=== PATIENT | male | born 1965 | race Caucasian/White ===

== ENCOUNTER → 2017-04-30 | Outpatient (CLI) | payer BC ==
[~2017-04-30] MED LIST: ASPI81TA28 PO; ATOR-24 PO; CLOP1TAB15 PO; DSY100 PO; LISI-725 PO; METO25TA3 PO; [UNRECOGNIZED DRUG - CODE] PO
--- NOTE | 2017-04-30 09:46 | DIAGNOSTIC IMAGING REPORT ---
C-SPINE ROUTINE 4 OR 5 VIEWS HISTORY: 51 years-old Male NECK PAIN chronic neck pain for several years, worse on the right. No reported trauma. COMPARISON: None available. TECHNIQUE: 5 views of the cervical spine. FINDINGS: The C7-T1 interspace is partially discovered on lateral view secondary to overlying soft tissue. Mild facet arthropathy is seen at C6-C7 and C7-T1. Mild multilevel uncovertebral spurring is noted without significant intervertebral disc space narrowing. Alignment is satisfactory. There is no fracture identified. The bony neuroforamina appear generally patent. The imaged lung apices appear clear. No prevertebral soft tissue swelling. IMPRESSION: 1. No acute fracture or subluxation. 2. Mild facet arthropathy at C6-C7 and C7-T1 with multilevel mild uncovertebral spurring. No significant intervertebral disc space narrowing or bony neuroforaminal stenosis identified. The above report was generated using voice recognition software. It may contain grammatical, syntax or spelling errors. Electronically signed by: Everett Mack M.D. 04/30/2017 9:45 AM Dictated Date/Time: 04/30/2017 9:42 AM
== END | disposition home or self-care (01) ==
LOC: C.RAD1850 09:07
PROVIDERS: ATTEND Family Medicine
DX: M54.2 Cervicalgia (principal)

== ENCOUNTER 2017-05-21 21:26 | Emergency (ER) | payer BC ==
[~2017-05-21] VITALS: Ht 172.7 cm; Wt 103.4 kg
[2017-05-21 21:33] VITALS: TEMP 36.9; Ht 172.7 cm; Wt 103.4 kg
[2017-05-21] MEDS ORDERED: OXYMETAZOLINE HCL 0.05% NA SPR 15 ML BTL ONE (21:44)
--- NOTE | 2017-05-21 22:17 | EMERGENCY ROOM VISIT NOTE ---
History Report prepared by [place]: Garland Padgett Under the Supervision of: Dr. Jennifer Kumar D.O. First contact with patient: 21:47 Chief Complaint: NOSE BLEED (MINOR) Stated Complaint: NOSE BLEED History of Present Illness The patient is a 51 year old male who presents to the Emergency Room with complaints of a constant nose bleed beginning an hour ago. The patient states that he has had about 5 intermittent nose bleeds since Saturday and states that this one has been the worst. He notes that the nose bleeds were previously in one nostril, but now seem to be in both. He notes also feeling symptoms of lightheadedness and nausea from the blood running down his throat. He denies any chest pain, SOB, cough, or cold. The patient states that he has never needed any previous packing for nose bleeds. He notes that he is currently takes aspirin and Plavix because he has two stents placed. Source of History: patient Onset: an hour ago Position: nose Timing: constant Associated Symptoms: + nausea, No cough, No chest pain, No SOB Note: he notes feeling light headed, he denies any cough or cold Review of Systems See HPI for pertinent positives & negatives. A total of 10 systems reviewed and were otherwise negative. Past Medical & Surgical Medical Problems: (1) Coronary artery disease Surgical Problems: (1) H/O percutaneous transluminal coronary angioplasty (2) Stented coronary artery Family History Diabetes mellitus FH: cancer FH: heart disease Hypertension Social History Smoking Status: Never Smoker Drug Use: none Marital Status: Housing Status: lives with family Occupation Status: employed Current/Historical Medications Scheduled Aspirin (Aspirin Ec), 81 MG PO QAM Atorvastatin (Lipitor), 40 MG PO QPM Bupropion (Wellbutrin), 100 MG PO LUNCH Cephalexin (Keflex), 1 CAP PO TID Clopidogrel (Plavix), 75 MG PO QAM Lisinopril (Zestril), 20 MG PO QAM Metoprolol Succinate (Toprol Xl), 0.5 TAB PO QAM Sertraline (Zoloft), 250 MG PO LUNCH Scheduled PRN Hydrocodone-Acetaminophen (Hydrocodone/Acetaminophen), 1 TAB PO Q4H PRN for Pain Allergies Coded Allergies: No Known Allergies (Unverified , 05/22/17) Physical Exam Vital Signs Date Time Temp Pulse Resp B/P (MAP) Pulse Ox O2 Delivery O2 Flow Rate FiO2 05/22/17 02:26 74 17 163/88 99 05/22/17 01:47 67 05/22/17 01:46 162/86 05/22/17 01:45 62 17 98 05/22/17 01:41 159/85 05/22/17 01:40 61 18 98 05/22/17 01:39 67 188/106 05/22/17 01:26 69 18 188/106 99 Room Air 05/22/17 00:53 180/101 05/22/17 00:31 73 18 198/110 98 Room Air 05/21/17 23:09 71 18 175/91 98 Room Air 05/21/17 21:33 36.9 66 20 195/126 98 Room Air Physical Exam GENERAL: alert, well appearing, well nourished, no distress, non-toxic EYE EXAM: normal conjunctiva, PERRL and EOM's grossly intact NOSE: obvious epistaxis right greater than left, unable to visualize site of bleeding OROPHARYNX: no exudate, no erythema, lips, buccal mucosa, and tongue normal and mucous membranes are moist, small amount of blood in posterior oropharynx NECK: supple, no nuchal rigidity, no adenopathy, non-tender LUNGS: Clear to auscultation. Normal chest wall mechanics HEART: no murmurs, S1 normal and S2 normal ABDOMEN: abdomen soft, non-tender, normo-active bowel sounds, no masses, no rebound or guarding. BACK: Back is symmetrical on inspection and there is no deformity, no midline tenderness, no CVA tenderness. SKIN: no rashes and no bruising UPPER EXTREMITIES: upper extremities are grossly normal. LOWER EXTREMITIES: No pitting edema. NEURO EXAM: Normal sensorium, cranial nerves II-XII grossly intact, normal speech, no gross weakness of arms, no gross weakness of legs. Medical Decision & Procedures Laboratory Results 05/21/17 22:14 Red Blood Count 4.80, Mean Corpuscular Volume 81.7, Mean Corpuscular Hemoglobin 29.4, Mean Corpuscular Hemoglobin Concent 36.0, Mean Platelet Volume 10.1, Neutrophils (%) (Auto) 55.7, Lymphocytes (%) (Auto) 31.0, Monocytes (%) (Auto) 9.5, Eosinophils (%) (Auto) 3.0, Basophils (%) (Auto) 0.6, Neutrophils # (Auto) 3.50, Lymphocytes # (Auto) 1.95, Monocytes # (Auto) 0.60, Eosinophils # (Auto) 0.19, Basophils # (Auto) 0.04 05/21/17 22:14 Test 05/21/17 22:14 White Blood Count 6.29 K/uL (4.8-10.8) Red Blood Count 4.80 M/uL (4.7-6.1) Hemoglobin 14.1 g/dL (14.0-18.0) Hematocrit 39.2 % (42-52) Mean Corpuscular Volume 81.7 fL (80-100) Mean Corpuscular Hemoglobin 29.4 pg (25-34) Mean Corpuscular Hemoglobin Concent 36.0 g/dl (32-36) Platelet Count 241 K/uL (130-400) Mean Platelet Volume 10.1 fL (7.4-10.4) Neutrophils (%) (Auto) 55.7 % Lymphocytes (%) (Auto) 31.0 % Monocytes (%) (Auto) 9.5 % Eosinophils (%) (Auto) 3.0 % Basophils (%) (Auto) 0.6 % Neutrophils # (Auto) 3.50 K/uL (1.4-6.5) Lymphocytes # (Auto) 1.95 K/uL (1.2-3.4) Monocytes # (Auto) 0.60 K/uL (0.11-0.59) Eosinophils # (Auto) 0.19 K/uL (0-0.5) Basophils # (Auto) 0.04 K/uL (0-0.2) RDW Standard Deviation 35.0 fL (36.4-46.3) RDW Coefficient of Variation 12.0 % (11.5-14.5) Immature Granulocyte % (Auto) 0.2 % Immature Granulocyte # (Auto) 0.01 K/uL (0.00-0.02) Prothrombin Time 10.8 SECONDS (9.0-12.0) Prothromb Time International Ratio 1.0 (0.9-1.1) Anion Gap 8.0 mmol/L (3-11) Est Creatinine Clear Calc Drug Dose 76.0 ml/min Estimated GFR () 69.7 Estimated GFR (Non- 60.1 BUN/Creatinine Ratio 15.4 (10-20) Calcium Level 9.3 mg/dl (8.5-10.1) Laboratory results per my review. Medications Administered Medications (Trade) Dose Ordered Sig/Rosalind Route Start Time Stop Time Status Last Admin Dose Admin Oxymetazoline HCl (Afrin 0.05% Nasal [place]) 75 sprays STK-MED ONCE .ROUTE 05/21/17 21:44 05/21/17 21:45 DC 05/21/17 21:45 75 SPRAYS Ondansetron HCl (Zofran Inj) 4 mg NOW STAT IV 05/21/17 22:19 05/21/17 22:20 DC 05/21/17 22:31 4 MG Amlodipine Besylate (Norvasc Tab) 5 mg NOW ONCE PO 05/21/17 23:30 05/21/17 23:31 DC 05/21/17 23:23 5 MG Cephalexin Monohydrate (Keflex Cap) 500 mg NOW ONCE PO 05/22/17 00:00 05/22/17 00:01 DC 05/22/17 00:29 500 MG Hydralazine HCl (HydrALAZINE INJ) 5 mg NOW STAT IV. 05/22/17 00:02 05/22/17 00:03 DC 05/22/17 00:30 5 MG Hydralazine HCl (HydrALAZINE INJ) 5 mg NOW STAT IV. 05/22/17 01:04 05/22/17 01:05 DC 05/22/17 00:53 5 MG Metoprolol Tartrate (Lopressor Iv) 5 mg NOW STAT IV 05/22/17 01:29 05/22/17 01:31 DC 05/22/17 01:39 5 MG Fentanyl Citrate (Fentanyl Inj) 50 mcg NOW ONCE IV 05/22/17 01:30 05/22/17 01:31 DC 05/22/17 01:38 50 MCG Ondansetron HCl (Zofran Inj) 4 mg NOW STAT IV 05/22/17 01:37 05/22/17 01:38 DC 05/22/17 01:46 4 MG Acetaminophen/ Hydrocodone Bitart ([place] 5/325 Tab) 1 tab NOW STAT PO 05/22/17 01:58 05/22/17 01:59 DC 10/18/17 02:02 1 TAB Ondansetron HCl (ZOFRAN ODT 4MG Home Pack) 1 homepack UD ONCE PO 05/22/17 02:00 05/22/17 02:01 DC 05/22/17 02:20 1 HOMEPACK ECG Indication: syncope (near syncope) Rate (beats per minute): 71 Rhythm: sinus rhythm Findings: PVC (frequent), Q waves (in lead 2, 3 and AVF), no acute ischemic change, other (normal axis, normal intervals) ED Course 2153: The patient was evaluated in room C10. A complete history and physical exam was performed. 2219: Zofran Inj 4mg IV 2330: Norcasc Tab 4mg IV 2359: I reevaluated and updated the patient. He is experiencing no recurrent bleeding. His blood pressure is still elevated. Left nare without any source of bleeding. 0000: Keflex Cap 500mg PO 0002: Hydralazine HCl 5mg IV 0041: Hydralazine HCl 5mg IM 0104: Hydralazine HCl 5mg IV 0129: Lopressor IV 5mg IV 0130: Fentanyl Inj 50mcg IV 0137: Zonfran Inj 4mg IV 0158: [place] 5/325 Tab 1 tab PO 0200: Zofran ODT 4mg Home pack 1 homepack PO 0154: I reevaluated and updated the patient. 0205: Upon reevaluation, the patient is feeling better. I discussed the findings and the treatment plan with the patient. He verbalizes agreement and understanding. The patient was discharged home. Medical Decision Differential diagnosis: Etiologies such as anterior epistaxis, coagulopathy, traumatic injury, fracture , septal hematoma, posterior epistaxis as well as other pathologies were entertained. Pt's bleeding resolved upon insertion of the rapid rhino. Pt with vasovagal reaction following insertion, however improved with IVF and zofran. Pt monitored several hours to watch for any persistent bleeding and also monitor BP. Initially elevated BP thought reactive due to presentation, however elevated BP persisted. Pt given additional meds and instructed to follow-up with PCP regarding his BP and BP meds. Instructed to f/u with ENT regarding nasal packing. Pleased on antibiotics. Discussed sx to watch/return for, he verbalized understanding and was agreeable with plan. Medication Reconcilliation Current Medication List: was personally reviewed by me Blood Pressure Screening Patient's blood pressure: Elevated blood pressure Blood pressure disposition: Elevated BP felt to be situational Impression Primary Impression: Epistaxis Additional Impression: Hypertension Scribe Attestation The scribe's documentation has been prepared under my direction and personally reviewed by me in its entirety. I confirm that the note above accurately reflects all work, treatment, procedures, and medical decision making performed by me. Departure Information Dispostion Home / Self-Care Referrals Carlee Gu M.D. (PCP) Forms HOME CARE DOCUMENTATION FORM, IMPORTANT VISIT INFORMATION, WORK / SCHOOL INSTRUCTIONS Patient Instructions [facility] Additional Instructions Please follow up with the ear nose and throat doctor. Please continue regular medications as prescribed, as well as the antibiotics. If you have any recurrent nosebleed, develop vomiting, fevers, vision changes, dizziness, or any other new concerns, please return the emergency room. Problem Qualifiers Additional Impression: Hypertension Hypertension type: essential hypertension Qualified Codes: I10 - Essential ( primary) hypertension
[2017-05-21] MEDS ORDERED: ONDANSETRON INJ 2 MG/ML 2 ML VIAL IV STA (22:19)
[2017-05-21 22:29] LABS: BASO % 0.6 %; BASO ABS # 0.04 K/uL (0-0.2); COMPLETE YES; HEMATOCRIT 39.2 % (42-52); IG% 0.2 %; LYMPH ABS # 1.95 K/uL (1.2-3.4); MEAN CELL VOLUME 81.7 fL (80-100); MEAN CORPUSCULAR HEMOGLOBIN 29.4 pg (25-34); MEAN PLATELET VOLUME 10.1 fL (7.4-10.4); MONO % 9.5 %; NEUT % 55.7 %; PLATELET COUNT 241 K/uL (130-400); WHITE BLOOD COUNT 6.29 K/uL (4.8-10.8)
[2017-05-21 22:42] LABS: PROTHROMBIN TIME (PATIENT) 10.8 SECONDS (9.0-12.0)
[2017-05-21 22:49] LABS: BUN/CREATININE RATIO 15.4 (10-20); CALCIUM 9.3 mg/dl (8.5-10.1); CREATININE 1.37 mg/dl (0.60-1.40); POTASSIUM 3.8 mmol/L (3.5-5.1)
[2017-05-21] MEDS ORDERED: BUPR-83 PO (22:54)
[2017-05-21] MEDS ORDERED: SERT-234 PO (22:54)
[2017-05-21] MEDS ORDERED: AMLODIPINE BESYLATE 5 MG TAB PO ONE (23:30)
[2017-05-22] MEDS ORDERED: CEPHALEXIN MONOHYDRATE 250 MG CAP PO ONE
[2017-05-22] MEDS ORDERED: HydrALAZINE HCL 20 MG/ML VIAL IV. STA ×2 (00:02→01:04)
[2017-05-22] MEDS ORDERED: CEPH-571 PO ×2 (00:25→15:30)
[2017-05-22] MEDS ORDERED: HydrALAZINE HCL 20 MG/ML VIAL IM STA (00:41)
[2017-05-22] MEDS ORDERED: METOPROLOL TARTRATE 1 MG/ML VIAL IV STA (01:29)
[2017-05-22] MEDS ORDERED: FENTANYL CITRATE INJ 50 MCG/1 ML 2 ML VIAL IV ONE (01:30)
[2017-05-22] MEDS ORDERED: ONDANSETRON INJ 2 MG/ML 2 ML VIAL IV STA (01:37)
[2017-05-22] MEDS ORDERED: HYDROCODONE/ACETAMOPHEN 5/325MG TAB PO STA (01:58)
[2017-05-22] MEDS ORDERED: ONDANSETRON HOME PACK 4MG OD TAB PO ONE (02:00)
[2017-05-22] MEDS ORDERED: HYDR-3419 PO (02:16)
[2017-05-22 02:26] VITALS: BP 163/88; PULSE 74; O2SAT 99
[2017-05-22] MEDS ORDERED: HYDR-4380 PO (15:30)
== END 2017-05-22 02:26 | disposition home or self-care (01) ==
LOC: C.EDB 21:28 → C.EDC 05-22 02:26
DX: R03.0 Elevated blood-pressure reading, without diagnosis of hypertension (principal); I10 Essential (primary) hypertension; I25.10 Atherosclerotic heart disease of native coronary artery without angina pectoris; Z98.61 Coronary angioplasty status; Z79.82 Long term (current) use of aspirin; Z79.899 Other long term (current) drug therapy; Z83.3 Family history of diabetes mellitus; Z80.9 Family history of malignant neoplasm, unspecified; Z82.49 Family history of ischemic heart disease and other diseases of the circulatory system

== ENCOUNTER → 2017-05-23 | Day surgery (SDC) | payer BC ==
[2017-05-22 15:30] VITALS: Ht 172.7 cm; Wt 100.0 kg
[~2017-05-23] VITALS: Ht 172.7 cm; Wt 100.0 kg
[~2017-05-23] MED LIST changes: +ATROPINE SULFATE 0.1 MG/ML 5ML SYR IV PRN; +BUPR-83 PO; +CEPH-571 PO; +DEXAMETHASONE SOD INJ 4 MG/ML VIAL IV PRN; -DSY100 PO; +EpHEDrine SULFATE INJ 50 MG/ML AMP IV PRN; +EpINEphrine INJ 1MG/ML AMP 1 MG/ML AMP ONE; +FENTANYL CITRATE INJ 50 MCG/1 ML 2 ML VIAL IV PRN; +GELATIN SPONGE SZ 100 ONE; +HYDR-4380 PO; +HYDROCODONE/ACETAMOPHEN 5/325MG TAB PO PRN; +KETOROLAC TROMETHAMINE 30 MG/ML VIAL IV. PRN; +LABETALOL HCL IV 5 MG/ML 20ML IV PRN; +METOCLOPRAMIDE HCL INJ 5 MG/ML 2 ML VIAL IV PRN; +MoRPHine SULFATE 10 MG/ML CARP/VIAL IV PRN; +ONDANSETRON INJ 2 MG/ML 2 ML VIAL IV PRN; +PHENYLEPHRINE 100MCG/ML 5ML SYR IV PRN; +SERT-234 PO; +SODIUM CHLORIDE 0.9% 1000ML 1,000 ML IV SCH; +TETRACAINE 4% TOPICAL SOLUTION TOP ONE; -[UNRECOGNIZED DRUG - CODE] PO
--- NOTE | 2017-05-23 07:04 | History and Physical: Surg Cnt ---
History & Physical Date May 23, 2017. Chief Complaint nose bleed History of Present Illness The patient is a 51 year old male with complaints of 4 episodes of epistaxis, epistat in right nostril Past Medical/Surgical History Medical Problems: (1) Coronary artery disease Surgical Problems: (1) H/O percutaneous transluminal coronary angioplasty (2) Stented coronary artery Additional History Hepatic Disease: No Endocrine Disorder: No Kidney Disease: No Hypertension: Yes Heart Disease: Yes Bleeding Tendencies: Yes Infectious Diseases: No Allergies Coded Allergies: No Known Allergies (Unverified , 05/22/17) Home Medications Scheduled Aspirin (Aspirin Ec), 81 MG PO QAM Atorvastatin (Lipitor), 40 MG PO QPM Bupropion (Wellbutrin), 100 MG PO LUNCH Cephalexin (Keflex), 1 CAP PO TID Clopidogrel (Plavix), 75 MG PO QAM Lisinopril (Zestril), 20 MG PO QAM Metoprolol Succinate (Toprol Xl), 0.5 TAB PO QAM Sertraline (Zoloft), 250 MG PO LUNCH Scheduled PRN Hydrocodone-Acetaminophen (Hydrocodone/Acetaminophen), 1 TAB PO Q4H PRN for Pain Physical Examination Skin: warm/dry, no rash Eyes: normal inspection, EOMI, sclerae normal ENT: normal ENT inspection, pharynx normal Head: normocephalic, atraumatic Neck: supple, no adenopathy, trachea midline Respiratory/Chest: lungs clear, normal breath sounds, no respiratory distress Cardiovascular: regular rate, rhythm, no edema, no murmur Abdomen / GI: normal bowel sounds, non tender Back: normal inspection Extremities: normal inspection, normal range of motion Neurologic/Psych: no motor/sensory deficits, alert, normal reflexes, oriented x 3 Diagnosis epistaxis ASA Classification: ASA Class II Plan of Treatment endoscopic cautery, posterior packing
--- NOTE | 2017-05-23 08:14 | History & Physical Bridge Note ---
H&P Re-Evaluation Bridge Note: I have examined the patient, reviewed the History & Physical and in the interval since the performance of the History & Physical I have noted the following changes of clinical significance: No changes noted
--- NOTE | 2017-05-23 10:07 | Discharge Instructions-SurgCtr ---
Discharge Instructions Date of Service May 23, 2017. Visit Reason for Visit: Epistaxis Discharge Discharge Diagnosis / Problem: same Discharge Goals Goal(s): Therapeutic intervention Activity Recommendations Activity Limitations: resume your previous activity Anesthesia . Post Anesthesia Instructions: If you have had General Anesthesia or IV Sedation: * Do not drive today. * Resume driving when surgeon permits. * Do not make important decisions or sign legal documents today. * Call surgeon for: 1. Temperature elevations greater than 101 degrees F. 2. Uncontrollable pain. 3. Excessive bleeding. 4. Persistent nausea and vomiting. 5. Medication intolerance (nausea, vomiting or rash). * For nausea and vomiting use only clear liquids such as: tea, soda, bouillon until nausea subsides, then gradually increase diet as tolerated. * If you have any concerns or questions, call your surgeon's office. If physician is unavailable and it is an emergency, call 911 or go to the nearest emergency room. . Instructions / Follow-Up Instructions / Follow-Up ACTIVITY RECOMMENDATIONS: * Being up and around is good, but no strenuous activity, heavy lifting or physical exertion for one week. * Keep your head elevated 30 degrees when lying down or sleeping. * Do not blow your nose for 48 hours, sniff back instead. * Avoid hot showers. OVER THE COUNTER MEDICATIONS: * You may use Tylenol * Avoid aspirin or aspirin containing products, e.g. as they may increase bleeding. SPECIAL CARE INSTRUCTIONS: * Expect to have bloody drainage from your nose and/or down your throat for one to three days. Change drip pad as needed. * Begin irrigating your nose with saline solution today, at least six to ten times per day and sniff back to help remove old clots or crust. * You may experience nasal and facial congestion, pain and pressure, this is normal. * Please call with any significant and/or progressive pain, redness, swelling around the eyes, visual changes, fever of 101.5 degrees F, active bleeding or any problems or concerns. * If active bleeding occurs, spray the nose three times at one minute intervals with Afrin spray and call or cell phone: . If unable to reach the doctor, go to the nearest Emergency Department. Special Diet: * Avoid extremely hot fluids. FOLLOW UP VISIT: Follow-up Visit with Dr. Xavier If not already scheduled, please call to schedule. Diet Recommendations Home Diet: no limitations Pending Studies Studies pending at discharge: no Medical Emergencies . Who to Call and When: Medical Emergencies: If at any time you feel your situation is an emergency, please call 911 immediately. . Non-Emergent Contact Non-Emergency issues call your: Primary Care Provider . . "Provider Documentation" section prepared by Jeanie Park. [place] Drug Monitoring Program Search Results: no issues identified
[2017-05-23 10:41] VITALS: TEMP 36.5
[2017-05-23 11:03] VITALS: BP 185/101; PULSE 71; O2SAT 98
--- NOTE | 2017-05-23 11:09 | OPERATIVE REPORT ---
DATE OF OPERATION: 05/23/2017 PREOPERATIVE DIAGNOSIS: Epistaxis, posterior. POSTOPERATIVE DIAGNOSIS: Same. PROCEDURE: Endoscopic cautery and posterior packing. SURGEON: Dr. Park. ANESTHESIA: Strict local. COMPLICATIONS: None. BLOOD LOSS: 2 mL HISTORY OF PRESENT ILLNESS: A 51-year-old gentleman with 4 episodes of epistaxis last week. He required packing in the Emergency Room with an Epistat Saturday night but continued to have oozing. DESCRIPTION OF PROCEDURE: The patient was brought to the operating room and placed in supine position. The Epistat was deflated and removed. The right side of the nose was anesthetized using topical tetracaine on cottonoid pledgets. 4 mL of 4% tetracaine was mixed with 1 mL of epinephrine. The bleeding site was at mid septum which was controlled using suction cautery. Posterior packing was started with 2 strips of Gelfoam posteriorly in the nasopharynx to block off the nasopharynx. The FloSeal was then layered from posteriorly to anteriorly, covering the right nasal cavity. Another strip of Gelfoam was placed anteriorly to hold the FloSeal in place. The patient tolerated the procedure well and was taken to recovery area in satisfactory condition. I attest to the content of the Intraoperative Record and any orders documented therein. Any exception s are noted below.
== END | disposition home or self-care (01) ==
LOC: X.SURG 07:46
PROVIDERS: ATTEND Otolaryngology
DX: R04.0 Epistaxis (principal); I25.10 Atherosclerotic heart disease of native coronary artery without angina pectoris; Z98.61 Coronary angioplasty status; Z79.82 Long term (current) use of aspirin; Z79.899 Other long term (current) drug therapy

== ENCOUNTER 2018-12-25 14:55 | Observation (INO) ==
[2018-12-25] MEDS ORDERED: MoRPHine SULFATE 4 MG/ML 1 ML CARP\\VIAL IV STA (15:10)
[2018-12-25] MEDS ORDERED: ASPIRIN CHEW 324 MG PO STA (15:10)
--- NOTE | 2018-12-25 15:19 | Emergency Department Note ---
History of Present Illness General Chief complaint: Chest Pain Stated complaint: CHEST AND ARM PAIN, SOB, ANXIETY Time Seen by Provider: 12/25/18 15:02 History of Present Illness Maximum Pain Intensity: 8 This is a 53-year-old male that presents to the emergency department via private vehicle with complaints of "chest and arm pain, shortness of breath, anxiety". The patient notes a history of TX, which was 9 years ago and was diagnosed and treated in [facility]. He notes that 2 stents were placed. He has been on Plavix. He notes that he started a new job and over the past 2 days feels as though he is been expensing panic attacks as well as bad thoughts. Then about an hour prior to arrival he began with left arm tightness, a tightness in his throat, left side of the chin and now his chest. He describes the sensation is very similar to his previous TX. He rates the pain as an 8/10. He did not take his Plavix today noting he has not slept or eaten well. He notes that he slept about 2 hours today after coming home from work and that is the most he is slept over the past 2 days. He notes a past medical history of that of hypertension, as well as high cholesterol and depression. He notes that his mother had an TX at age 42 and his dad in his 50s. Home Medications Home Medications Medication Instructions Recorded Confirmed Type aspirin [Aspirin Low Dose] 81 mg PO DAILY 12/25/18 12/25/18 History atorvastatin 40 mg PO DAILY 12/25/18 12/25/18 History clopidogrel 75 mg PO DAILY 12/25/18 12/25/18 History lisinopril 20 mg PO DAILY 12/25/18 12/25/18 History metoprolol succinate 25 mg PO DAILY 12/25/18 12/25/18 History Allergies Allergy/AdvReac Type Severity Reaction Status Date / Time No Known Allergies Allergy Unverified 12/25/18 15:47 Past Med/Surg History Medical History Hypokalemia Suicidal ideation Anxiety Depression Chest pain Coronary artery disease (Chronic) Depression Hx of myocardial infarction Surgical History H/O percutaneous transluminal coronary angioplasty (Resolved) Stented coronary artery (Chronic) History of coronary artery stent placement Social History Preferred Language: Singaporean Communication Ability: Effective Communication Ability Comment: flat affect, quiet Beliefs That Will Affect Care: None Current Living Situation: Other Current Living Situation Comment: with roommate Other Information That Helps Us Care for You: No Feels Safe at Home: Yes Safety Concerns: Feels Safe At This Time Smoking Status: Never smoker Do You Dip or Chew Tobacco: No Hx Alcohol Use: Yes Hx Substance Use: No Review of Systems A total of 10 systems reviewed and were otherwise negative Physical Exam Vital Signs Vital Signs - 24 hr 12/25/18 14:59 12/25/18 15:09 12/25/18 15:15 Temperature 36.7 C Temperature Source Oral Sepsis Recent Fever Within 48 Hours No Sepsis New/Unexplained Change in Mental Status No Sepsis Action Taken by Nursing No Action Required Pulse Rate 71 83 65 Pulse Rate [Right Finger] Pulse Rate from SpO2 Sensor 77 67 Pulse Rhythm Regular Pulse Rhythm [Right Finger] Pulse Strength Normal Pulse Strength [Right Finger] Respiratory Rate 18 18 16 Respiratory Effort / Characteristics Non-Labored Respiratory Depth Normal Respiratory Pattern Regular Blood Pressure 196/100 H 179/101 H Blood Pressure [Right Arm] Blood Pressure Mean 132 127 Blood Pressure Mean [Right Arm] Blood Pressure Position Sitting Pulse Oximetry 99 97 97 Oxygen Delivery Method Room Air 12/25/18 15:17 12/25/18 15:20 12/25/18 15:30 Temperature Temperature Source Sepsis Recent Fever Within 48 Hours Sepsis New/Unexplained Change in Mental Status Sepsis Action Taken by Nursing Pulse Rate 72 79 Pulse Rate [Right Finger] Pulse Rate from SpO2 Sensor 72 78 Pulse Rhythm Pulse Rhythm [Right Finger] Pulse Strength Pulse Strength [Right Finger] Respiratory Rate 23 20 Respiratory Effort / Characteristics Respiratory Depth Respiratory Pattern Blood Pressure Blood Pressure [Right Arm] Blood Pressure Mean Blood Pressure Mean [Right Arm] Blood Pressure Position Pulse Oximetry 98 98 97 Oxygen Delivery Method Room Air 12/25/18 15:32 12/25/18 15:40 12/25/18 15:50 Temperature Temperature Source Sepsis Recent Fever Within 48 Hours Sepsis New/Unexplained Change in Mental Status Sepsis Action Taken by Nursing Pulse Rate 66 66 62 Pulse Rate [Right Finger] Pulse Rate from SpO2 Sensor 67 68 63 Pulse Rhythm Pulse Rhythm [Right Finger] Pulse Strength Pulse Strength [Right Finger] Respiratory Rate 22 20 17 Respiratory Effort / Characteristics Respiratory Depth Respiratory Pattern Blood Pressure 176/103 H Blood Pressure [Right Arm] Blood Pressure Mean 127 Blood Pressure Mean [Right Arm] Blood Pressure Position Pulse Oximetry 98 97 98 Oxygen Delivery Method 12/25/18 16:00 12/25/18 16:10 12/25/18 16:20 Temperature Temperature Source Sepsis Recent Fever Within 48 Hours Sepsis New/Unexplained Change in Mental Status Sepsis Action Taken by Nursing Pulse Rate 71 62 64 Pulse Rate [Right Finger] Pulse Rate from SpO2 Sensor 66 61 67 Pulse Rhythm Pulse Rhythm [Right Finger] Pulse Strength Pulse Strength [Right Finger] Respiratory Rate 15 14 18 Respiratory Effort / Characteristics Respiratory Depth Respiratory Pattern Blood Pressure 173/96 H Blood Pressure [Right Arm] Blood Pressure Mean 121 Blood Pressure Mean [Right Arm] Blood Pressure Position Pulse Oximetry 96 98 98 Oxygen Delivery Method 12/25/18 16:30 12/25/18 16:40 12/25/18 16:50 Temperature Temperature Source Sepsis Recent Fever Within 48 Hours Sepsis New/Unexplained Change in Mental Status Sepsis Action Taken by Nursing Pulse Rate 60 63 65 Pulse Rate [Right Finger] Pulse Rate from SpO2 Sensor 60 63 66 Pulse Rhythm Pulse Rhythm [Right Finger] Pulse Strength Pulse Strength [Right Finger] Respiratory Rate 17 20 20 Respiratory Effort / Characteristics Respiratory Depth Respiratory Pattern Blood Pressure 152/99 H Blood Pressure [Right Arm] Blood Pressure Mean 116 Blood Pressure Mean [Right Arm] Blood Pressure Position Pulse Oximetry 97 97 98 Oxygen Delivery Method 12/25/18 17:00 12/25/18 17:10 12/25/18 17:20 Temperature Temperature Source Sepsis Recent Fever Within 48 Hours Sepsis New/Unexplained Change in Mental Status Sepsis Action Taken by Nursing Pulse Rate 63 65 69 Pulse Rate [Right Finger] Pulse Rate from SpO2 Sensor 63 66 69 Pulse Rhythm Pulse Rhythm [Right Finger] Pulse Strength Pulse Strength [Right Finger] Respiratory Rate 22 24 18 Respiratory Effort / Characteristics Respiratory Depth Respiratory Pattern Blood Pressure 155/93 H Blood Pressure [Right Arm] Blood Pressure Mean 113 Blood Pressure Mean [Right Arm] Blood Pressure Position Pulse Oximetry 96 96 95 Oxygen Delivery Method 12/25/18 17:30 12/25/18 17:40 12/25/18 17:50 Temperature Temperature Source Sepsis Recent Fever Within 48 Hours Sepsis New/Unexplained Change in Mental Status Sepsis Action Taken by Nursing Pulse Rate 74 71 75 Pulse Rate [Right Finger] Pulse Rate from SpO2 Sensor 74 70 74 Pulse Rhythm Pulse Rhythm [Right Finger] Pulse Strength Pulse Strength [Right Finger] Respiratory Rate 18 18 20 Respiratory Effort / Characteristics Respiratory Depth Respiratory Pattern Blood Pressure Blood Pressure [Right Arm] Blood Pressure Mean Blood Pressure Mean [Right Arm] Blood Pressure Position Pulse Oximetry 98 98 97 Oxygen Delivery Method 12/25/18 18:00 12/25/18 18:01 12/25/18 18:20 Temperature Temperature Source Sepsis Recent Fever Within 48 Hours Sepsis New/Unexplained Change in Mental Status Sepsis Action Taken by Nursing Pulse Rate 72 71 Pulse Rate [Right Finger] 69 Pulse Rate from SpO2 Sensor 73 72 Pulse Rhythm Pulse Rhythm [Right Finger] Regular Pulse Strength Pulse Strength [Right Finger] Normal Respiratory Rate 12 21 18 Respiratory Effort / Characteristics Non-Labored Respiratory Depth Normal Respiratory Pattern Regular Blood Pressure 183/97 H Blood Pressure [Right Arm] 178/103 H Blood Pressure Mean 125 Blood Pressure Mean [Right Arm] 128 Blood Pressure Position Pulse Oximetry 97 98 98 Oxygen Delivery Method Room Air VITAL SIGNS - Vital signs and nursing notes were reviewed. Hypertensive, otherwise stable. GENERAL - 53-year-old male appearing his stated age who is in no acute distress but appears anxious. Communicates well with provider and answers questions appropriately. SKIN - Without rashes. HEAD - NC/AT. EYES - PERRL with EOMI bilaterally. Sclera anicteric. Palpebral conjunctiva pink and moist with no injection noted. EARS - No deformities of external structures noted on gross examination bilaterally. NOSE - Midline and without cyanosis. No epistaxis or purulent drainage noted. MOUTH/OROPHARYNX - Without perioral cyanosis. NECK - Neck with FROM. Supple to palpation. No lymphadenopathy noted. No nuchal rigidity. LUNGS - Chest wall symmetric without accessory muscle use, intercostals retractions, or central cyanosis. Normal vesicular breath sounds CTA B/L. No wheezes, rales, or rhonchi appreciated. CARDIAC - RRR with S1/S2. No murmur, rubs, or gallops appreciated. ABDOMEN - Abdominal contour normal without pulsations or visible masses. BS normoactive all four quadrants. No tenderness, palpable masses, hepatosplenomegaly, or ascites noted. EXTREMITIES - No clubbing or peripheral cyanosis. No pretibial edema present. +5/5 strength noted in UE/LE bilaterally. NEUROLOGIC - Cranial nerves II through XII grossly intact. PSYCH - A&Ox3 and cooperates fully with examiner. Pt is very pleasant and intera cts well with examiner. Course Administered Medications Potassium Chloride (K Bowen / Wtr) 10 meq in 100 mls @ 100 mls/hr IV Q1H HONEY Stop: 12/26/18 00:59 Last Admin: 12/25/18 22:00 Dose: 100 mls/hr Documented by: [id number] Discontinued Medications Aspirin (Aspirin) 324 mg PO NOW STA Stop: 12/25/18 15:11 Last Admin: 12/25/18 15:16 Dose: 324 mg Documented by: [id number] Morphine Sulfate (Morphine Sulfate) 4 mg IV NOW STA Stop: 12/25/18 15:11 Last Admin: 12/25/18 15:16 Dose: 4 mg Documented by: [id number] Medical Decision Making Laboratory Data Result diagrams: 12/25/18 15:14 12/25/18 15:14 Lab Results 12/25/18 12/25/18 12/25/18 Range/Units 15:14 15:14 15:14 WBC 5.32 (4.8-10.8) K/uL RBC 4.46 L (4.7-6.1) M/uL Hgb 14.2 (14.0-18.0) g/dL Hct 35.8 L (42-52) % MCV 80.3 (80-100) fL MCH 31.8 (25-34) pg MCHC 39.7 H (32-36) g/dL RDW Std Deviation 35.9 L (36.4-46.3) fL RDW Coeff of Phylicia 12.3 (11.5-14.5) % Plt Count 230 (130-400) K/uL MPV 9.9 (7.4-10.4) fL Immature Gran % (Auto) 0.2 % Neut % (Auto) 74.3 % Lymph % (Auto) 17.7 % [place]verse % (Auto) 6.8 % Eos % (Auto) 0.6 % Baso % (Auto) 0.4 % Immature Gran # (Auto) 0.01 (0.00-0.02) K/uL Neut # (Auto) 3.96 (1.4-6.5) K/uL Lymph # (Auto) 0.94 L (1.2-3.4) K/uL Traverse # (Auto) 0.36 (0.11-0.59) K/uL Eos # (Auto) 0.03 (0-0.5) K/uL Baso # (Auto) 0.02 (0-0.2) K/uL PT 11.4 (9.0-12.0) Seconds INR 1.1 (0.9-1.1) APTT 25.2 (21.0-31.0) Seconds PTT Ratio 0.9 Sodium 139 (136-145) mmol/L Potassium 3.3 L (3.5-5.1) mmol/L Chloride 107 (98-107) mmol/L Carbon Dioxide 23 (21-32) mmol/L Anion Gap 9.0 (3-11) BUN 12 (7-18) mg/dl Creatinine 1.26 (0.6-1.4) mg/dl Est Cr Clr Drug Dosing 78.8 ml/min Est GFR ( Amer) 76.0 Est GFR (Non-Af Amer) 65.6 BUN/Creatinine Ratio 9.6 L (10-20) Glucose 101 H (70-99) mg/dl Calcium 9.9 (8.5-10.1) mg/dl Total Bilirubin 1.1 H (0.2-1) mg/dl AST 19 (15-37) U/L ALT 35 (12-78) U/L Alkaline Phosphatase 102 (45-117) U/L Troponin I < 0.015 (0-0.045) ng/ml Total Protein 8.1 (6.4-8.2) gm/dl Albumin 4.5 (3.4-5.0) gm/dl Globulin 3.6 (2.5-4.0) gm/dl Albumin/Globulin Ratio 1.3 (0.9-2) Lipase 55 L (73-393) U/L TSH 2.500 (0.300-4.500) uIu/ml Urine Color Urine Appearance (Clear) Urine pH (4.5-7.5) Ur Specific [place] (1.000-1.030) Urine Protein (Negative) Urine Glucose (UA) (Negative) Urine Ketones (Negative) Urine Blood (Negative) Urine Nitrite (Negative) Urine Bilirubin (Negative) Urine Urobilinogen (Negative) Ur Leukocyte Esterase (Negative) Urine Opiates Screen (Neg) Ur Methadone, Qual (Neg) Urine Barbiturates (Neg) Ur Phencyclidine (PCP) (Neg) U Amphetamin/Meth Scrn (Neg) MDMA (Ecstasy) Screen (Neg) U Benzodiazepines Scrn (Neg) Ur Cocaine Metabolite (Neg) U Marijuana (THC) Screen (Neg) 12/25/18 12/25/18 Range/Units 18:01 18:01 WBC (4.8-10.8) K/uL RBC (4.7-6.1) M/uL Hgb (14.0-18.0) g/dL Hct (42-52) % MCV (80-100) fL MCH (25-34) pg MCHC (32-36) g/dL RDW Std Deviation (36.4-46.3) fL RDW Coeff of Phylicia (11.5-14.5) % Plt Count (130-400) K/uL MPV (7.4-10.4) fL Immature Gran % (Auto) % Neut % (Auto) % Lymph % (Auto) % [place] % (Auto) % Eos % (Auto) % Baso % (Auto) % Immature Gran # (Auto) (0.00-0.02) K/uL Neut # (Auto) (1.4-6.5) K/uL Lymph # (Auto) (1.2-3.4) K/uL Traverse # (Auto) (0.11-0.59) K/uL Eos # (Auto) (0-0.5) K/uL Baso # (Auto) (0-0.2) K/uL PT (9.0-12.0) Seconds INR (0.9-1.1) APTT (21.0-31.0) Seconds PTT Ratio Sodium (136-145) mmol/L Potassium (3.5-5.1) mmol/L Chloride (98-107) mmol/L Carbon Dioxide (21-32) mmol/L Anion Gap (3-11) BUN (7-18) mg/dl Creatinine (0.6-1.4) mg/dl Est Cr Clr Drug Dosing ml/min Est GFR ( Amer) Est GFR (Non-Af Amer) BUN/Creatinine Ratio (10-20) Glucose (70-99) mg/dl Calcium (8.5-10.1) mg/dl Total Bilirubin (0.2-1) mg/dl AST (15-37) U/L ALT (12-78) U/L Alkaline Phosphatase (45-117) U/L Troponin I (0-0.045) ng/ml Total Protein (6.4-8.2) gm/dl Albumin (3.4-5.0) gm/dl Globulin (2.5-4.0) gm/dl Albumin/Globulin Ratio (0.9-2) Lipase (73-393) U/L TSH (0.300-4.500) uIu/ml Urine Color Yellow Urine Appearance Clear (Clear) Urine pH 6.5 (4.5-7.5) Ur Specific [place] 1.014 (1.000-1.030) Urine Protein Negative (Negative) Urine Glucose (UA) Negative (Negative) Urine Ketones Negative (Negative) Urine Blood Negative (Negative) Urine Nitrite Negative (Negative) Urine Bilirubin Negative (Negative) Urine Urobilinogen Negative (Negative) Ur Leukocyte Esterase Negative (Negative) Urine Opiates Screen Pos H (Neg) Ur Methadone, Qual Neg (Neg) Urine Barbiturates Neg (Neg) Ur Phencyclidine (PCP) Neg (Neg) U Amphetamin/Meth Scrn Neg (Neg) MDMA (Ecstasy) Screen Neg (Neg) U Benzodiazepines Scrn Neg (Neg) Ur Cocaine Metabolite Neg (Neg) U Marijuana (THC) Screen Neg (Neg) Imaging Data Radiologist's Impression: XR chest 1V portable HISTORY: Atypical chest pain COMPARISON: Chest 12/27/2013. FINDINGS: The lungs are clear. Cardiac silhouette is normal in size. No pleural effusions. No pneumothorax. IMPRESSION: No acute process. Electronically signed by: Arvin Gilbert M.D. 12/25/2018 3:35 PM [facility] Narrative Patient was seen and evaluated as above in room B4. Review was performed of nursing notes and vital signs. After obtaining a thorough history and physical examination the above work up was performed. He presents to us today with chest pain. He appears quite anxious on exam. He is hypertensive, otherwise stable. A bedside EKG was performed and at this time reveals normal sinus rhythm with sinus arrhythmia. There is no evidence of TX on this examination. Chest x-ray as above. This was negative. Troponin is negative x1 and not consistent with acute cardiac injury at this time. CBC reveals no leukocytosis. Minimal decrease in red blood cell count. There is slight hypokalemia at 3.3. Coags are normal. Total bilirubin elevated at 1.1, lipase low. TSH reveals a euthyroid state. Urinalysis is negative. Urine drug screen is pending. The patient notes a history of depression and is not on his medications. He feels as though he may be experiencing panic attacks. The patient upon my initial entry to the exam room admitted to having bad thoughts. I then offered to have him speak to a psychiatric case preparer and liner and she spoke to the patient. He was very receptive to this. I was informed by her that the patient had suicidal th oughts with plan. I unfortunately cannot clear the patient medically given his heart history and chest pain today. I do believe it is reasonable to admit him for further evaluation and management of the chest pain and psychiatric evaluation. I did order suicide precautions and one-on-one given the reported suicidal state of the patient from the psychiatric case preparer and liner. This was discussed with the attending physician, and subsequently the hospitalist. Please refer to further documentation regarding the patient's stay. Case was discussed with the attending physician. GCS: 15 In the evaluation and treatment of this patient, the following differential diagnoses were considered: TX, ASC, Dysrhythmia, Angina, Mediastinitis, GERD, Esophagitis, PE, Pneumonia, Bronchitis, Costochondritis, Rib Fracture, Zoster. Impression & Plan Chest pain, Hypokalemia, Suicidal ideation Discharge Plan Visit Data *Final* Discharge Date/Time: 12/25/18 19:38 Chief Complaint: Chest Pain Stated Complaint: CHEST AND ARM PAIN, SOB, ANXIETY ED Provider: Dani Garcia ED Midlevel Provider: Del Santa Discharge Problem: Chest pain, Hypokalemia, Suicidal ideation Patient Disposition: Admitted As Inpatient Condition: Good Discharge Instructions Interventions: ED Discharge Assessment Last Done: 12/25/18 19:38
--- NOTE | 2018-12-25 15:37 | XRay Report ---
XR chest 1V portable HISTORY: Atypical chest pain COMPARISON: Chest 12/27/2013. FINDINGS: The lungs are clear. Cardiac silhouette is normal in size. No pleural effusions. No pneumot horax. IMPRESSION: No acute process. Electronically signed by: Arvin Gilbert M.D. 12/25/2018 3:35 PM
[2018-12-25 15:38] LABS: INR 1.1 (0.9-1.1); Partial Thromboplastin Ratio 0.9; Partial Thromboplastin Time 25.2 Seconds (21.0-31.0); Prothrombin Time 11.4 Seconds (9.0-12.0)
[2018-12-25 15:52] LABS: Alanine Aminotransferase 35 U/L (12-78); Albumin Level 4.5 gm/dl (3.4-5.0); Aspartate Aminotransferase 19 U/L (15-37); BUN Creatinine Ratio 9.6 (10-20); Blood Urea Nitrogen 12 mg/dl (7-18); Calcium 9.9 mg/dl (8.5-10.1); Carbon Dioxide 23 mmol/L (21-32); Chloride 107 mmol/L (98-107); Creatinine Clr Calc Pharmacy 78.8 ml/min; Est GFR (Non-African American) 65.6; Glucose 101 mg/dl (70-99); Potassium 3.3 mmol/L (3.5-5.1); Sodium 139 mmol/L (136-145)
[2018-12-25 15:57] LABS: Albumin Globulin Ratio 1.3 (0.9-2); Alkaline Phosphatase 102 U/L (45-117); Bilirubin,Total 1.1 mg/dl (0.2-1); Globulin 3.6 gm/dl (2.5-4.0); Total Protein 8.1 gm/dl (6.4-8.2); Troponin I < 0.015 ng/ml (0-0.045)
[2018-12-25 16:02] LABS: Hematocrit (blood only) 35.8 % (42-52); Hemoglobin 14.2 g/dL (14.0-18.0); Mean Corpuscular Volume 80.3 fL (80-100); Red Blood Count 4.46 M/uL (4.7-6.1); White Blood Count 5.32 K/uL (4.8-10.8)
[2018-12-25 16:03] LABS: Basophils # (auto) 0.02 K/uL (0-0.2); Basophils % (auto) 0.4 %; Eosinophils # (auto) 0.03 K/uL (0-0.5); Eosinophils % (auto) 0.6 %; Immature Granulocytes # (auto) 0.01 K/uL (0.00-0.02); Immature Granulocytes % (auto) 0.2 %; Lymphocytes # (auto) 0.94 K/uL (1.2-3.4); Lymphocytes % (auto) 17.7 %; Mean Corpuscular Hgb Conc 39.7 g/dL (32-36); Mean Platelet Volume 9.9 fL (7.4-10.4); Monocytes # (auto) 0.36 K/uL (0.11-0.59); Monocytes % (auto) 6.8 %; Neutrophils # (auto) 3.96 K/uL (1.4-6.5); Neutrophils % (auto) 74.3 %; Platelet Count 230 K/uL (130-400); RDW Coefficient of Variation 12.3 % (11.5-14.5); RDW Standard Deviation 35.9 fL (36.4-46.3)
[2018-12-25 18:19] LABS: Appearance Urine Clear (Clear); Bilirubin Urine Negative (Negative); Blood Urine Negative (Negative); Color Urine Yellow; Glucose Urine UA Negative (Negative); Ketones Urine Negative (Negative); Leukocyte Esterase Urine Negative (Negative); Nitrite Urine Negative (Negative); Protein Urine Negative (Negative); Specific Gravity Urine 1.014 (1.000-1.030); Urobilinogen Urine Negative (Negative); pH Urine 6.5 (4.5-7.5)
[2018-12-25] MEDS ORDERED: ONDANSETRON INJ 2 MG/ML 2 ML VIAL IV PRN (18:22)
[2018-12-25] MEDS ORDERED: ACETAMINOPHEN 325 MG TAB PO PRN (18:22)
--- NOTE | 2018-12-25 18:25 | History & Physical Report ---
Date of Service December 25, 2018 Assessment & Plan (1) Coronary artery disease: (2) Stented coronary artery: (3) H/O percutaneous transluminal coronary angioplasty: - Will request HIM to retrieve records regarding previous stenting (4) Chest pain: - Admit to tele for observation for r/o - Trend cardiac biomarkers, initial set was negative - EKG reviewed as above - Check 2 D echo - If negative enzymes can consider a stress test tomorrow morning -- patient does have significant cardiac history but this can certainly be psychiatrically related. - PT/OT consulted (5) Depression: (6) Anxiety: (7) Suicidal ideation: - 1:1, suicide precautions - Psych consulted - He reported to the psych CM that he does have excess psych medications and would overdose on these meds in a suicide attempt, however the patient denied suicidal ideations to me. No firearms in home. - Pt currently is not on any antidepressant or other anxiolytic medications, most recently used antidepressants in May or June 2018. Patient previously followed with Dr. Melania Lam, [facility]. He also previously used a therapist however reports this was a financial burden therefore stopped seeing her. He is open to seeing a therapist/counselor in the future. - He cannot specifically name a previous antidepressant that has worked well for him in the past. He notes that he has seen improvement in his mood with less hopelessness however does not feel happy even when on antidepressants. Pt will require outpatient psych follow up once the inpatient psych team deems him appropriate for discharge. - Tox screen is showing + opiate however the patient denies this during my exam. Await the rest of the panel to result. (8) Hypokalemia: - K = 3.3, will replace with IV. (9) DVT prophylaxis: - romana [place] History of Present Illness Primary Care Provider: Carlee Gu MD This is a 53 yo M with PMHx of CAD s/p WI in 2009 with 2 coronary stents, HTN, depression and anxiety who presents with acute onset of chest pain x 1-2 days. The patient notes he has been struggling with what sounds like a panic attack over the last 2 days. He has had increase in chest tightness along with mind racing, anxiety, difficulty sleeping, poor focus, and increased fatigue. Patient thinks that he is started whenever he got transferred to work in a new department at [employer], as he now works with environmental services. This started on December 08. Unfortunately the patient has been working nights and also required to attend daytime training so his sleep has been very adversely affected and is not sleeping more than 3-4 hours a night, and still feels exhausted. He feels that his mind racing and sense of hopelessness has increased over the last 2 days, but has been going on for at least 2 weeks. In the past 2 days he noticed increased chest tightness which then moved up into his jaw and left side of the neck. Patient reports this is exactly the same compared to his previous WI in 2009. He currently follows with cardiology, at [facility] in [place]. He goes annually, and next appointment is in March. The patient notes that last Saturday he engaged in alcohol consumption including many beers, rum and cola. Whereas typically he does not use any alcohol at baseline. He was around people when he did this, denies that this was a call for help, however admits this is unlike him. He denies any illicit drug use or tobacco use. Pertinent psych history: He has been struggling with depression and anxiety for at least 5 years. Patient has followed with Dr. Lam at [facility] previously, however has not seen a psychiatrist for at least 6 months. At that point she had made a medication change for him, although he cannot recall which medication was changed/adjusted, and developed hives/itching, therefore he discontinued the medication without titrating and off and has been off all psychiatric medication since then. He has previously been on Zoloft, Cymbalta, and Effexor and has excess of these medications at home. He notes that there has been times in the past where he does feel suicidal. It appears the patient had been admitted to 3 S here at [facility] about 3 years ago for suicidal ideation. The patient denies having any firearms in the home. When asked about suicidal ideations and a plan he denies having either, and responds saying "I don't think I could go through with it anyways. ". He denies any homicidal ideations. Lives at home with a roommate, and she is present at bedside. Allergies Allergy/AdvReac Type Severity Reaction Status Date / Time No Known Allergies Allergy Unverified 12/25/18 15:47 Home Medications Home Medications Medication Instructions Recorded Confirmed Type aspirin [Aspirin Low Dose] 81 mg PO DAILY 12/25/18 12/25/18 History atorvastatin 40 mg PO DAILY 12/25/18 12/25/18 History clopidogrel 75 mg PO DAILY 12/25/18 12/25/18 History lisinopril 20 mg PO DAILY 12/25/18 12/25/18 History metoprolol succinate 25 mg PO DAILY 12/25/18 12/25/18 History Past Med/Surg History Medical History Hypokalemia Suicidal ideation Anxiety Depression Chest pain Coronary artery disease (Chronic) Depression Hx of myocardial infarction Surgical History H/O percutaneous transluminal coronary angioplasty (Resolved) Stented coronary artery (Chronic) History of coronary artery stent placement Social History Feels Safe at Home: Yes Smoking Status: Never smoker Review of Systems Review of Systems: Constitutional: No fever, sweats or chills. As per HPI. Eyes: No diplopia, no worsening or blurred vision ENT: normal hearing, no trouble swallowing Respiratory: No cough, sputum, dyspnea at rest or on exertion Cardiovascular: + chest pain, tightness and intermittent palpitations Abdomen: + poor appetite. No pain, nausea, vomiting, diarrhea or constipation Musculoskeletal: No joint pain, calf pain, swelling Neurologic: No weakness, numbness/tingling, or balance problems Psychiatric:+ anxiety and depression, +suicidal ideations, no homicidal ideations, + hopelessness, fatigued Skin: No rash or itch Physical Exam Physical Exam: General: awake, alert, flat and depressed affect, speaking in low tone, overweight, 1:1 at bedside Head: Normocephalic, atraumatic ENT: PERRL, EOMI, no pharyngeal exudate, mucous membranes moist Chest: Nontender to palpation, clear to auscultation, on room air, no adventi tious breath sounds Cardiac: Regular rate and rhythm, no murmur, no JVD, normal peripheral pulses, good capillary refill Abdominal: NABS x 4 quadrants, soft, nontender to palpation, no rebound, guardi ng or tenderness Extremities: Normal inspection, no peripheral edema or erythema, calfs nontender to palpation Psych: Flat affect, depressed mood. Neuro: AAO x 3,no motor deficits, speech is clear Constitutional: WD/WN, vitals as above Eyes: normal visual zelaya by confrontation and + anicteric sclerae Neck: normal visual inspection and trachea midline Respiratory: normal respiratory effort, lungs clear to auscultation Cardiovascular: Rate/Rhythm: regular rate and regular rhythm Gastrointestinal (Abdomen): Inspection/Auscultation: abdomen not distended Percussion/Palpation: abdomen soft; abdomen nontender Musculoskeletal: Head/Neck/Chest: normocephalic and head atraumatic Neg for peripheral LE edema, + pedal pulses Skin: no rashes, warm and dry Neurologic: awake; not confused Speech / Cognition: normal speech Psychiatric: Orientation: oriented x 3 Affect: + depressed affect Lymphatic: Exam as done by Sharri Varela DO Results & Data Vital Signs (Past 12 Hours) Vital Signs Temp Pulse Pulse Resp BP BP Pulse Ox 12/25/18 18:20 69 18 178/103 H 98 12/25/18 18:01 71 21 183/97 H 98 12/25/18 18:00 72 12 97 12/25/18 17:50 75 20 97 12/25/18 17:40 71 18 98 12/25/18 17:30 74 18 98 12/25/18 17:20 69 18 95 12/25/18 17:10 65 24 96 12/25/18 17:00 63 22 155/93 H 96 12/25/18 16:50 65 20 98 12/25/18 16:40 63 20 97 12/25/18 16:30 60 17 152/99 H 97 12/25/18 16:20 64 18 98 12/25/18 16:10 62 14 98 12/25/18 16:00 71 15 173/96 H 96 12/25/18 15:50 62 17 98 12/25/18 15:40 66 20 97 12/25/18 15:32 66 22 176/103 H 98 12/25/18 15:30 79 20 97 12/25/18 15:20 72 23 98 12/25/18 15:17 98 12/25/18 15:15 65 16 97 12/25/18 15:09 83 18 179/101 H 97 12/25/18 14:59 36.7 C 71 18 196/100 H 99 Diagnostic Findings XR chest 1V portable HISTORY: Atypical chest pain COMPARISON: Chest 12/27/2013. FINDINGS: The lungs are clear. Cardiac silhouette is normal in size. No pleural effusions. No pneumothorax. IMPRESSION: No acute process. Code Status & VTE Plan Code Status Full code Supervising Physician Co-Signing Physician Notes Pt seen and examined by me. Denies current chest pain or SOB. Does note that his L arm is heavy and he has an ache in his L jaw. Pt was concerned because these are similar sx to when he had an WI. Tolerating PO without issue, but with intermittent nausea. Agree with HPI/ROS as noted by PA See above for my exam in PE section Agree with plan as outlined above Chest pain, work up neg thus far Concern for possible SI, will need cardiac clearance prior to transfer to [facility]
[2018-12-25 18:55] LABS: Acetaminophen < 2 ug/ml (10-30); Salicylate < 1.7 mg/dl (2.8-20)
[2018-12-25 18:57] LABS: Amphetamines+Metham, Urine Neg (Neg); Barbiturates, Urine Neg (Neg); Benzodiazepine, Urine Neg (Neg); Cocaine, Urine Neg (Neg); MDMA (Ecstacy), Urine Neg (Neg); Methadone, Urine Neg (Neg); Opiate, Urine Pos (Neg); Phencyclidine, Urine Neg (Neg)
[2018-12-25] MEDS ORDERED: POTASSIUM CHLORIDE / WTR 20 MEQ/100 ML PLCT IV STA (20:11)
[2018-12-25] MEDS: POTASSIUM CHLORIDE / WTR 10 MEQ/100 ML PLCT IV SCH ×2 (22:00→23:12)
[2018-12-26] MEDS: POTASSIUM CHLORIDE / WTR 10 MEQ/100 ML PLCT IV SCH ×2 (00:07→01:05)
[2018-12-26 05:45] LABS: Hematocrit (blood only) 32.6 % (42-52); Hemoglobin 12.2 g/dL (14.0-18.0); Mean Corpuscular Hgb Conc 37.4 g/dL (32-36); Mean Corpuscular Volume 81.1 fL (80-100); Mean Platelet Volume 9.8 fL (7.4-10.4); Platelet Count 173 K/uL (130-400); RDW Coefficient of Variation 12.2 % (11.5-14.5); RDW Standard Deviation 35.8 fL (36.4-46.3); Red Blood Count 4.02 M/uL (4.7-6.1); White Blood Count 3.94 K/uL (4.8-10.8)
[2018-12-26 06:16] LABS: Albumin Level 3.5 gm/dl (3.4-5.0); BUN Creatinine Ratio 13.7 (10-20); Calcium 8.8 mg/dl (8.5-10.1); Creatinine Clr Calc Pharmacy 101.4 ml/min; Est GFR (Non-African American) 88.9; Magnesium 2.2 mg/dl (1.8-2.4); Potassium 3.9 mmol/L (3.5-5.1)
[2018-12-26 06:18] LABS: Albumin Globulin Ratio 1.3 (0.9-2); Bilirubin,Total 0.8 mg/dl (0.2-1); Globulin 2.7 gm/dl (2.5-4.0); Phosphorus 3.2 mg/dl (2.5-4.9); Total Protein 6.2 gm/dl (6.4-8.2)
[2018-12-26] MEDS ORDERED: LISINOPRIL 20 MG TAB PO SCH (09:00)
[2018-12-26] MEDS ORDERED: ASPIRIN 81 MG ECTAB PO SCH (09:00)
[2018-12-26] MEDS ORDERED: CLOPIDOGREL BISULFATE 75 MG TAB PO SCH (09:00)
[2018-12-26] MEDS ORDERED: METOPROLOL SUCC 25MG EXT REL TAB PO SCH (09:00)
[2018-12-26] MEDS ORDERED: ENOXAPARIN INJ 40 MG/0.4 ML SYR SQ SCH (09:00)
[2018-12-26] MEDS ORDERED: ATORVASTATIN 40 MG TAB PO SCH (09:00)
--- NOTE | 2018-12-26 12:47 | Psychiatric Consultation ---
Date of Consultation December 26, 2018 Impression / Recommendations Impression 53-year-old male admitted medically on 12/25/2018 for cardiac workup. Patient had reported suicidal comments to staff in the emergency department and on the medical floor. Patient is seen in consult service to assess the severity of these thoughts, and make recommendations regarding discharge planning. Patient has a history of sporadic psychiatric treatment, he is interested in returning to medications and is agreeable to outpatient follow-up at discharge. At this time, patient reports ongoing thoughts to end his life, continuing to report a plan to overdose on medications. Brief safety planning conversation was attempted, asking patient if he had supports who would be able to remove medications or other weapons from his home prior to his discharge. Patient states that he does not feel safe returning home at this time, believing he is at increased risk to act on these thoughts if he is discharged and stress returns. Based on these reports, his previous psychiatric history, 2 previous hospitalizations, and no active psychiatric providers, our recommendation at this time is for inpatient psychiatric treatment. This was discussed with the patient who is agreeable with the plan, recognizing his need to address his anxiety, depression, and suicidal thoughts. At time of this report, patient still requires cardiac clearance prior to discharge planning. At time of medical clearance, we will assist with the transfer process. Appreciate the opportunity to participate in the care of this patient. Dr. Patricio Roberto was directly involved in review and discussion of the patient's case and participated in medical decision making regarding treatment recommendations. Risk Factors Assessment Male: Yes : Yes Do You Have Access To A Gun?: No Health Problems: Yes Mental Health Diagnoses: Yes Substance Use Disorders: No Previous Attempt: No Family History of Suicide: No Previous Psychiatric Hospitalization: Yes Hopelessness: Yes Smoker: No Protective Factors Assessment Rastafarian Beliefs: Yes : No Responsible for Young Children: No Employed: Yes Stable Relationships: No Supportive Family: No Good Rapport with Provider: No CPT Code Initial Consultation: 16184 Psych History Identifying Data 53-year-old male admitted medically on 12/25/18 with reports of chest pain for the past 1-2 days. Pt has previous cardiac history of WY in 2009 requiring the placement of 2 stents. Pt has a reported psychiatric history of anxiety and depression. Psychiatric consultation is requested to evaluate patient for suicidality, based on various statements made to staff during his admission. Information is gathered from hospital documentation, outpatient psychiatric records, and the patient himself - the combination of which is considered to be reliable. Chief Complaint "Yesterday and the day before I was having panic attacks. They were prolonged, with shaking, I was breathing heavier." History of Present Illness Marbin Martinez is a 53-year-old male admitted medically on 12/25/18 for cardiac work-up after presented to the ED with chest pain x 2 days. Pt has PMH of WY in 2009 with placement of 2 coronary stents, CAD, HTN, depression, and anxiety. Patient reported that he was experiencing chest pain, left-sided jaw pain, and left arm pain prior to admission - leading to concern he was having another WY. Patient had verbalized suicidal ideation to staff in the ED and on the medical floor, leading to a psychiatric evaluation to assess for this. Patient's case was reviewed with psychiatric nurse liaison. Patient was seen on psychiatric consult service to assess the status of his suicidality, and make appropriate recommendations for discharge planning. Patient shares with this provider that he has had multiple stressors recently which include transition to a new position, feeling he is a burden to her friends, low self-esteem and negative self talk, and having to transition to a third shift position. Patient states he was in 2014 and continues to struggle with this realization, he states "I still do not think I am over it." Patient has previous psychiatric diagnoses of major depressive disorder and generalized anxiety disorder. He is not currently taking psychiatric medications. He is previously seen Dr. Lam at [facility] periodically, stating his last visit was in May or June 2018. Patient has had several trials of antidepressant medications previously. He states most are beneficial to improve his mood and reduce anxiety; however, side effects have often prevented him from feeling he could continue the medications. He has been out of treatment at times, but returns when he is noticing lower mood with passive suicidal thoughts begin. On this provider's assessment, the patient is admitting to active suicidal thoughts for the past week. He states he is considered a plan to overdose on medications, and states that prior to admission he came very close to following through with this plan. Patient admits that he did not feel safe outside of the hospital, especially with the symptoms he believed to be related to a cardiac event. Patient shares with this provider that he does not feel comfortable to be discharged, as he feels these thoughts will return and he may be more likely to act on them. Patient admits to low mood for many years. He also endorses depressive symptoms of anhedonia, decreased energy, limited motivation to complete tasks at home, reduced appetite, and increased desire to remain in bed when not at work. Patient admits to frequent negative self talk, stating he is very insecure. These thoughts have made him feel as though he is inadequate in his new position, making him question if this job change is something he will be able to handle. Patient is not currently in a relationship; however, reports his female roommate has been a good support. He does admit to this provider that he feels as though he is a burden, and he often does not reach out to her when he is having concerning thoughts. Patient does report some concern about having to take time off of work; however, he is agreeable at time of this assessment to inpatient psychiatric treatment. Pt denies HI, SIB, A/V hallucinations, paranoia, abi/hypomania, other symptoms more suggestive of a bipolar presentation, OCD, PTSD, eating disorder, and other specific psychiatric symptoms. Past Psychiatric History Previous Psych History: Has previously followed with Dr. Lam at [facility] for medication management. Pt had two inpatient psychiatric admissions at [facility] in 2013. Pt has been in and out of care, with multiple antidepressant trials. Decreased libido has often interfered with his desire to continue medications. Current Psychiatric Diagnosis: Major depressive disorder, recurrent, severe; Generalized anxiety d/o Outpatient Services: None presently; previously saw Dr. Lam at [facility] Previous Psych Admissions: 2 admissions at [facility] in 2013 with similar presentation (most recent 12/27/13) Do You Have Access To A Gun?: No History of Previous Suicide Attempt: No Past Medication Trials: Per patient report and outpatient provider documentation: 1. Cymbalta - itching/hives 2. Effexor 3. Prozac 4. Wellbutrin - ineffective in combination with Zoloft to improve libido 5. Zoloft - decreased libido 6. Trazodone - effective for sleep Allergies Allergy/AdvReac Type Severity Reaction Status Date / Time No Known Allergies Allergy Unverified 12/25/18 15:47 Home Medications Home Medications Medication Instructions Recorded Confirmed Type aspirin [Aspirin Low Dose] 81 mg PO DAILY 12/25/18 12/25/18 History atorvastatin 40 mg PO DAILY 12/25/18 12/25/18 History clopidogrel 75 mg PO DAILY 12/25/18 12/25/18 History lisinopril 20 mg PO DAILY 12/25/18 12/25/18 History metoprolol succinate 25 mg PO DAILY 12/25/18 12/25/18 History Family History Father - PTSD symptoms from service in [place] Brother - no current relationship; D&A abuse Substance Abuse History Pt denies tobacco use. He states he drinks "socially", which is reported to be the consumption of 4-5 alcoholic beverages 1-2 times per month. Patient denies other substance use, including marijuana, cocaine, methamphetamine, abuse of prescription drugs, or other mind altering substances. Personal History Living Arrangements: Apartment (With female roommate) Childhood: Patient was born in [place], believes he had a "normal" childhood. 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 He states the most traumatic events in his life where his divorce and his heart attack. Patient History Medical History Hypokalemia (Acute) Suicidal ideation (Acute) Anxiety Depression Chest pain (Acute) Coronary artery disease (Chronic) Depression Hx of myocardial infarction Surgical History H/O percutaneous transluminal coronary angioplasty (Resolved) Stented coronary artery (Chronic) History of coronary artery stent placement Social History Preferred Language: Afghan Communication Ability: Effective Communication Ability Comment: flat affect, quiet Beliefs That Will Affect Care: None Current Living Situation: Other Current Living Situation Comment: with roommate Other Information That Helps Us Care for You: No Feels Safe at Home: Yes Safety Concerns: Feels Safe At This Time Smoking Status: Never smoker Do You Dip or Chew Tobacco: No Hx Alcohol Use: Yes Hx Substance Use: No Physical Exam Psychiatric: Orientation: alert, oriented x 3 and cooperative Apperance: appropriately dressed (He describes), appropriately groomed and appeared stated age Eye Contact: good eye contact Motor Behavior: no abnormal motor movements (Observed while laying in bed) Speech: normal rate/rhythm/volume of speech Affect: + depressed affect and + tearful affect Mood: + depressed mood and + anxious mood "Everything is not good right now" and "A lot of anxiety" Thought Process: goal directed thought process, linear/logical thought process and clear/coherent thought process Thought Content: reality based without delusions Suicidal Thoughts: denies suicidal intent (But is noticing increased difficulty resisting temptation); + reports suicidal thoughts and + reports suicidal plan (Reports a plan to overdose) Homicidal Thoughts: denies homicidal thoughts Hallucinations: no auditory hallucinations and no visual hallucinations Cognition: recent memory grossly intact, remote memory grossly intact, attention grossly intact and language grossly intact Estimated Intelligence: consistent with education level Insight: + impaired insight Judgement: + impaired judgement Vital Signs (Past 24 Hours): Last Vital Signs Temp 36.3 C L 12/26/18 11:28 Pulse 56 L 12/26/18 11:28 Resp 18 12/26/18 11:28 BP 144/89 H 12/26/18 11:28 Pulse Ox 97 12/26/18 11:28 Review of Systems Constitutional: reports decreased appetite, 4-5lb recent unintentional weight loss Cardiovascular: reports chest pain, tachycardia Respiratory: reports "labored" breathing Gastrointestinal: reports nausea for the past week Neurological: reports difficulty concentrating for the past week Psychiatric: denies symptoms other than stated above Total of at least 10 systems reviewed, pertinent positives as above and in HPI. Results & Data Medications Administered Aspirin (Ecotrin Ectab) 81 mg PO DAILY [facility] Stop: 01/25/19 08:59 Last Admin: 12/26/18 08:20 Dose: 81 mg Documented by: [id number] Atorvastatin Calcium (Lipitor) 40 mg PO DAILY [facility] Stop: 01/25/19 08:59 Last Admin: 12/26/18 08:19 Dose: 40 mg Documented by: [id number] Clopidogrel Bisulfate (Plavix) 75 mg PO DAILY [facility] Stop: 01/25/19 08:59 Last Admin: 12/26/18 08:19 Dose: 75 mg Documented by: [id number] Enoxaparin Sodium (Lovenox) 40 mg SQ QAM [facility] Stop: 01/25/19 08:59 Last Admin: 12/26/18 08:24 Dose: Not Given Documented by: [id number] Lisinopril (Zestril) 20 mg PO DAILY [facility] Stop: 01/25/19 08:59 Last Admin: 12/26/18 08:20 Dose: 20 mg Documented by: [id number] Metoprolol Succinate (Toprol Xl) 25 mg PO DAILY [facility] Stop: 01/25/19 08:59 Last Admin: 12/26/18 08:21 Dose: 25 mg Documented by: [id number]
--- NOTE | 2018-12-26 16:19 | Cardiology Consultation ---
Date of Consultation December 26, 2018 Assessment & Plan (1) Chest pain: All the character of the patient's symptoms are certainly concerning for an acute coronary syndrome, the extended duration of the symptoms without an elevation cardiac biomarkers suggests this is not ischemic. His symptoms are very likely related to his psychiatric condition and anxiety. I do not think he requires additional risk stratification based on the current symptoms. However, he is scheduled by report for perfusion imaging in March of this year. At the time of discharge she could contact his primary verification manager to see if her perfusion imaging could be performed earlier. He has been maintained on beta-blockade, Cristobal inhibition and dual anti-platelet therapy as well as high-dose atorvastatin. These medicines should be continued. He can follow up with his primary verification manager after discharge. (2) Hypertension: Patient blood pressure has been elevated since admission. Perhaps this related to his associated anxiety. If he continues to be elevated intensi fication of his antihypertensive regimen would be warranted, especially with this history of coronary disease. Increasing his lisinopril to 20 milligrams a day would be reasonable intervention. History of Present Illness Reason for Consultation: Chest pain Requesting Physician: Abner Attending Physician: Nishi Levine MD History of Present Illness The patient is a 53-year-old gentleman with a history of coronary disease having previously undergone coronary intervention in 2009. He reports this being the setting of a myocardial infarction. Over the past few days the patient has been experiencing symptoms of chest pressure, left arm discomfort and jaw pain. States that the character of the symptoms as similar to that he experienced in 2010 when he had his myocardial infarction. His symptoms are not as severe. The symptoms have been fairly constant in nature for several days only waxing and waning in severity a little bit during that time. He cannot recall any specific intervention which relieved his symptoms. He cannot recall any specific activity which made it worse. He has slept very little in this period of time as well. He has had some dyspnea with activity during the past few days. He does report considerable anxiety associated with starting a new job. When he is feeling well he can perform activity without limitation. He does not report exertional dyspnea or exertional chest pain. Generally speaking he sleeps fairly well. He has not report symptoms of palpitations, dizziness, lightheadedness or syncope. Allergies Allergy/AdvReac Type Severity Reaction Status Date / Time No Known Allergies Allergy Unverified 12/25/18 15:47 Home Medications Home Medications Medication Instructions Recorded Confirmed Type aspirin [Aspirin Low Dose] 81 mg PO DAILY 12/25/18 12/25/18 History atorvastatin 40 mg PO DAILY 12/25/18 12/25/18 History clopidogrel 75 mg PO DAILY 12/25/18 12/25/18 History lisinopril 20 mg PO DAILY 12/25/18 12/25/18 History metoprolol succinate 25 mg PO DAILY 12/25/18 12/25/18 History Patient History Medical History Hypokalemia (Acute) Suicidal ideation (Acute) Anxiety Depression Chest pain (Acute) Coronary artery disease (Chronic) Depression Hx of myocardial infarction Surgical History H/O percutaneous transluminal coronary angioplasty (Resolved) Stented coronary artery (Chronic) History of coronary artery stent placement Social History Preferred Language: Tamaz[place] Communication Ability: Effective Communication Ability Comment: flat affect, quiet Beliefs That Will Affect Care: Christianity (Cong[employer]) Current Living Situation: Other Current Living Situation Comment: with roommate Other Information That Helps Us Care for You: No Feels Safe at Home: Yes Safety Concerns: Feels Safe At This Time Smoking Status: Never smoker Do You Dip or Chew Tobacco: No Hx Alcohol Use: Yes Hx Substance Use: No Review of Systems Review of Systems: All systems reviewed & are unremarkable except as noted in HPI & below He has been mildly dizzy over the past few days. His appetite has been poor. No specific gastrointestinal symptoms such as nausea or vomiting. He states that rarely he will have some mild lower extremity edema, but generally speaking he does not. Physical Exam Physical Exam: The patient is alert and oriented. Mood and affect appeared normal. He answered all questions appropriately. HEENT: Pupils are equal and reactive to light and accommodation. Extraocular movements are intact. The sclerae are anicteric. Neuro: Cranial nerves intact Neck: Patient's neck is supple. He has palpable carotid pulses bilaterally without bruits on auscultation. There is no evidence of jugular venous distention. The thyroid is not enlarged. Lungs: Clear to auscultation bilaterally. He has good air movement without use of accessory muscles. No rales wheezes or rhonchi. Cardiac: Heart demonstrates a regular rate and rhythm. Normal S1 and S2. No murmurs on examination. Chest: Palpation of the chest and left arm did not reproduce his symptoms Pulses: The patient has palpable radial pulses bilaterally that are equal in intensity Extremities: There was no evidence of hypoperfusion. There is no cyanosis or clubbing. There is no edema. Skin: I did not appreciate any rashes on examination today. Results & Data Vital Signs (Past 12 Hours) Vital Signs Temp Pulse Pulse Resp BP Pulse Ox 12/26/18 16:06 61 12/26/18 14:18 36.5 C 59 L 18 175/98 H 93 12/26/18 11:28 36.3 C L 56 L 18 144/89 H 97 12/26/18 08:11 37 C 55 L 18 178/90 H 95 12/26/18 08:00 53 L Laboratory Results Abnormal Lab Results 12/25/18 12/25/18 12/25/18 15:14 18:01 18:01 WBC RBC Hgb Hct MCV MCH MCHC RDW Std Deviation RDW Coeff of Phylicia Plt Count MPV Sodium Potassium Chloride Carbon Dioxide Anion Gap BUN Creatinine Est Cr Clr Drug Dosing Est GFR ( Amer) Est GFR (Non-Af Amer) BUN/Creatinine Ratio Glucose Calcium Phosphorus Magnesium Total Bilirubin AST ALT Alkaline Phosphatase Troponin I Total Protein Albumin Globulin Albumin/Globulin Ratio TSH 2.500 Urine Color Yellow Urine Appearance Clear Urine pH 6.5 Ur Specific [place] 1.014 Urine Protein Negative Urine Glucose (UA) Negative Urine Ketones Negative Urine Blood Negative Urine Nitrite Negative Urine Bilirubin Negative Urine Urobilinogen Negative Ur Leukocyte Esterase Negative Salicylates Urine Opiates Screen Pos H Ur Methadone, Qual Neg Acetaminophen Urine Barbiturates Neg Ur Phencyclidine (PCP) Neg U Amphetamin/Meth Scrn Neg MDMA (Ecstasy) Screen Neg U Benzodiazepines Scrn Neg Ur Cocaine Metabolite Neg U Marijuana (THC) Screen Neg Ethyl Alcohol mg/dL 12/25/18 12/25/18 12/25/18 18:22 18:22 18:22 WBC RBC Hgb Hct MCV MCH MCHC RDW Std Deviation RDW Coeff of Phylicia Plt Count MPV Sodium Potassium Chloride Carbon Dioxide Anion Gap BUN Creatinine Est Cr Clr Drug Dosing Est GFR ( Amer) Est GFR (Non-Af Amer) BUN/Creatinine Ratio Glucose Calcium Phosphorus Magnesium Total Bilirubin AST ALT Alkaline Phosphatase Troponin I < 0.015 Total Protein Albumin Globulin Albumin/Globulin Ratio TSH Urine Color Urine Appearance Urine pH Ur Specific [place] Urine Protein Urine Glucose (UA) Urine Ketones Urine Blood Urine Nitrite Urine Bilirubin Urine Urobilinogen Ur Leukocyte Esterase Salicylates < 1.7 L Urine Opiates Screen Ur Methadone, Qual Acetaminophen < 2 L Urine Barbiturates Ur Phencyclidine (PCP) U Amphetamin/Meth Scrn MDMA (Ecstasy) Screen U Benzodiazepines Scrn Ur Cocaine Metabolite U Marijuana (THC) Screen Ethyl Alcohol mg/dL < 3.0 12/25/18 12/26/18 12/26/18 21:35 05:27 05:27 WBC 3.94 L RBC 4.02 L Hgb 12.2 L Hct 32.6 L MCV 81.1 MCH 30.3 MCHC 37.4 H RDW Std Deviation 35.8 L RDW Coeff of Phylicia 12.2 Plt Count 173 MPV 9.8 Sodium 140 Potassium 3.9 D Chloride 112 H Carbon Dioxide 23 Anion Gap 6.0 BUN 13 Creatinine 0.98 Est Cr Clr Drug Dosing 101.4 Est GFR ( Amer) 103.0 Est GFR (Non-Af Amer) 88.9 BUN/Creatinine Ratio 13.7 Glucose 87 Calcium 8.8 Phosphorus 3.2 Magnesium 2.2 Total Bilirubin 0.8 AST 18 ALT 26 Alkaline Phosphatase 80 Troponin I < 0.015 Total Protein 6.2 L D Albumin 3.5 Globulin 2.7 Albumin/Globulin Ratio 1.3 TSH Urine Color Urine Appearance Urine pH Ur Specific [place] Urine Protein Urine Glucose (UA) Urine Ketones Urine Blood Urine Nitrite Urine Bilirubin Urine Urobilinogen Ur Leukocyte Esterase Salicylates Urine Opiates Screen Ur Methadone, Qual Acetaminophen Urine Barbiturates Ur Phencyclidine (PCP) U Amphetamin/Meth Scrn MDMA (Ecstasy) Screen U Benzodiazepines Scrn Ur Cocaine Metabolite U Marijuana (THC) Screen Ethyl Alcohol mg/dL 12/26/18 05:27 WBC RBC Hgb Hct MCV MCH MCHC RDW Std Deviation RDW Coeff of Phylicia Plt Count MPV Sodium Potassium Chloride Carbon Dioxide Anion Gap BUN Creatinine Est Cr Clr Drug Dosing Est GFR ( Amer) Est GFR (Non-Af Amer) BUN/Creatinine Ratio Glucose Calcium Phosphorus Magnesium Total Bilirubin AST ALT Alkaline Phosphatase Troponin I < 0.015 Total Protein Albumin Globulin Albumin/Globulin Ratio TSH Urine Color Urine Appearance Urine pH Ur Specific Dal[place] Urine Protein Urine Glucose (UA) Urine Ketones Urine Blood Urine Nitrite Urine Bilirubin Urine Urobilinogen Ur Leukocyte Esterase Salicylates Urine Opiates Screen Ur Methadone, Qual Acetaminophen Urine Barbiturates Ur Phencyclidine (PCP) U Amphetamin/Meth Scrn MDMA (Ecstasy) Screen U Benzodiazepines Scrn Ur Cocaine Metabolite U Marijuana (THC) Screen Ethyl Alcohol mg/dL Diagnostic Findings Chest x-ray the time of admission did not reveal any acute cardiopulmonary findings. ECG Additional Comments: Normal sinus rhythm with nonspecific ST and T-wave changes, primarily T-wave inversion in lead 3
[2018-12-26] MEDS ORDERED: ALUMINUM/MAGNESIUM SUSP 30 ML UDC PO STA (16:29)
--- NOTE | 2018-12-26 16:41 | Discharge Summary ---
Date of Service December 26, 2018 Admission HPI Per Admitting Provider This is a 53 yo M with PMHx of CAD s/p NM in 2009 with 2 coronary stents, HTN, depression and anxiety who presents with acute onset of chest pain x 1-2 days. The patient notes he has been struggling with what sounds like a panic attack over the last 2 days. He has had increase in chest tightness along with mind racing, anxiety, difficulty sleeping, poor focus, and increased fatigue. Patient thinks that he is started whenever he got transferred to work in a new department at [employer], as he now works with [employer]. This started on December 08. Unfortunately the patient has been working nights and also required to attend daytime training so his sleep has been very adversely affected and is not sleeping more than 3-4 hours a night, and still feels exhausted. He feels that his mind racing and sense of hopelessness has increased over the last 2 days, but has been going on for at least 2 weeks. In the past 2 days he noticed increased chest tightness which then moved up into his jaw and left side of the neck. Patient reports this is exactly the same compared to his previous NM in 2009. He currently follows with cardiology, at [facility] in [place]. He goes annually, and next appointment is in March. The patient notes that last Saturday he engaged in alcohol consumption including many beers, rum and cola. Whereas typically he does not use any alcohol at baseline. He was around people when he did this, denies that this was a call for help, however admits this is unlike him. He denies any illicit drug use or tobacco use. Pertinent psych history: He has been struggling with depression and anxiety for at least 5 years. Patient has followed with Dr. Lam at [facility] previously, however has not seen a psychiatrist for at least 6 months. At that point she had made a medication change for him, although he cannot recall which medication was changed/adjusted, and developed hives/itching, therefore he discontinued the medication without titrating and off and has been off all psychiatric medication since then. He has previously been on Zoloft, Cymbalta, and Effexor and has excess of these medications at home. He notes that there has been times in the past where he does feel suicidal. It appears the patient had been admitted to [facility] here at [facility] about 3 years ago for suicidal ideation. The patient denies having any firearms in the home. When asked about suicidal ideations and a plan he denies having either, and responds saying "I don't think I could go through with it anyways. ". He denies any homicidal ideations. Lives at home with a roommate, and she is present at bedside. Principal Diagnosis Atypical chest pain-noncardiac Discharge Exam Constitutional WD/WN, vitals as above Eyes PERRL, conjunctivae normal, anicteric sclerae ENMT external ear and nose normal, oropharynx normal Neck trachea midline, no thyromegaly Respiratory normal respiratory effort, lungs clear to auscultation Cardiovascular RRR, no murmur, no edema Vessels: no JVD and no carotid bruit Chest (Breasts) Chest: normal inspection of chest (with mild +TTP over inferior sternum) Gastrointestinal (Abdomen) normal bowel sounds, soft, nontender, no hepatosplenomegaly Musculoskeletal Extremities: extremities normal to inspection; no cyanosis and no clubbing Skin no rashes, warm and dry Neurologic moves all extremities and awake; no focal motor deficits Psychiatric Orientation: alert and oriented x 3 Apperance: appropriately dressed Eye Contact: + fair eye contact Motor Behavior: n tremor Speech: normal rate/rhythm/volume of speech Affect: + depressed affect Mood: + depressed mood and + anxious mood Thought Process: goal directed thought process Suicidal Thoughts: denies suicidal plan; + reports suicidal thoughts (+SI) Discharge Data Allergies Allergy/AdvReac Type Severity Reaction Status Date / Time No Known Allergies Allergy Unverified 12/25/18 15:47 Consultations Psychiatry Cardiology Ordered Studies Chest xray Hospital Course (1) Chest pain: Pt with sharp left sided chest pain and some susbternal as well at times that is sharp, with pain into his jaw and left shoulder tightness. All symptoms started over 24 hours ago and have been constant ever since, but somewhat relieved with receiving morphine in the ER. He has also had a lot of nausea, some dry heaving, acid reflux type symptoms, and poor appetite for a few days. He has had minimal po intake the past 2-3 days which he attributes to being very anxious. 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 He has been under a lot of stress over his new job and reports he has not taken his Psych meds in about 6 months. Serial troponins were negative x 3 - EKGs reviewed and with nonspecific changes, discussed with [employer] who did not feel they were significant and did not represent acute coronary syndrome He has good exercise tolerance and had no problems prior to admission for the last 9 years since his NM. He had a normal Nuclear Stress test he thinks about 3 years ago Follows with Cardiology at [facility] in [place] Cardiology consult appreciated--> no further cardiac testing needed and chest pain deemed not related to cardiac issues. Will give Maalox and start Zantac bid as he may have some gastritis related to anxiety and poor appetite. Pt is medically cleared and is stable for discharge to the mental health unit today. His case was discussed with the Psychiatric Nurse liaison and Cardiology (2) Coronary artery disease: with h/o NM with 2 stents in 2009, possibly to the LAD as per pt -stable, no ACS as above -continue ASA, Plavix, metoprolol, statin, and lisinopril (3) Stented coronary artery: as above (4) Depression: long standing and with recurrence now, +SI Appreciate Psych consultation and plan to discharge to inpatient Psychiatric service for further treatment (5) Anxiety: discharging to inpatient psych as above (6) Suicidal ideation: - 1:1, suicide precautions were provided - Psych consulted - He reported to the psych CM that he does have excess psych medications and would overdose on these meds in a suicide attempt, however the patient denied suicidal ideations to me. No firearms in home. - Pt currently is not on any antidepressant or other anxiolytic medications, most recently used antidepressants in May or June 2018. Patient previously followed with Dr. Melania Lam, [facility]. He also previously used a therapist however reports this was a financial burden therefore stopped seeing her. He is open to seeing a therapist/counselor in the future. - Tox screen is showing + opiate however the patient denies illicit drug use. He DID RECEIVE morphine for his chest pain in the ER about 5 hours prior to the urine tox screen being performed which is most likely explanation for this finding. Discharge to inpatient psych as above (7) Hypokalemia: - K = 3.3 on admission and was replaced with IV KCl Repeat K+ today is normal (8) DVT prophylaxis: - teds, lovenox were provided Dispo-stable medically for dc to inpatient Psychiatric service Total Time Total Time Spent Total Time Spent (In Minutes): >30 min Total Time Includes: Examination of the Patient, Discharge Planning, Medication Reconciliation and Communication With Other Providers (Cardiology, Psychiatric Nurse) Discharge Plan Discharge Items Patient Disposition: Transfer Behavioral Health Fac Reason For Visit: CHEST PAIN Discharge Diagnosis: Chest pain-noncardiac Condition: Good Discharge Goals: Decrease discomfort, Diagnostic testing, Learn about illness and Therapeutic intervention Activity: Resume your previous activity Lifting: Gradually increase as tolerated Bathing: No limitations Exercise/Sports: Gradually increase as tolerated Driving/Machine Use: No limitations Non-emergency contact: Primary Care Provider, [employer] and Psychiatrist Call non-emergency contact if: you have any medication questions, your symptoms worsen, your pain is not controlled, your pain is worsening, your pain is unusual for you and your pain is concerning for you Follow-up/Referrals: Carlee Gu MD [Primary Care Provider] - Diet: Heart Healthy Addtl Provider Instructions: You were admitted with chest pain. You had testing performed that showed you did NOT have a problem with your heart. Your pain could be from acid reflux and stress. You were started on Zantac and given Maalox to help with the pain. Please continue to take all your other medications as prescribed. You are being discharged to the Behavioral Health Unit here at [facility] [address]. Please follow up with your PCP and with your [employer] within 2 weeks after discharge. Prescriptions: New acetaminophen [Mapap (acetaminophen)] 325 mg Tablet 650 mg PO Q4H PRN (Reason: pain) Qty: 30 RF: 0 ranitidine HCl 150 mg Tablet 150 mg PO BID Qty: 60 RF: 0 Continued atorvastatin 40 mg tablet 40 mg PO DAILY RF: 0 lisinopril 20 mg tablet 20 mg PO DAILY RF: 0 clopidogrel 75 mg tablet 75 mg PO DAILY RF: 0 aspirin [Aspirin Low Dose] 81 mg Tablet,Delayed Release (Dr/Ec) 81 mg PO DAILY RF: 0 metoprolol succinate 25 mg tablet extended release 24 hr 25 mg PO DAILY RF: 0 Stand-Alone Forms: Call Back Authorization, [facility] Discharge Orders: Discharge Order (Routine); Ordered 12/26/18 Ordered By: Nishi Levine Skilled Items DNR: No Admission Data Admit Date/Time: 12/25/18 18:21 Attending Provider: Nishi Levine Admit Provider: Sharri Varela Primary Care Provider: Carlee Gu Other Providers: Holden Barros ; Melania Lam ; Sharri Varela Service: Telemetry Medical Other Pending Studies at Discharge: No
[2019-01-01 15:25] LABS: Hydrocodone Urine NEGATIVE NG/ML (CUTOFF=50); Hydromor Urine NEGATIVE NG/ML (CUTOFF=50); Morphine Urine 4200 NG/ML (CUTOFF=50); Norhydrocodone Conf Ur NEGATIVE NG/ML (CUTOFF=50); Noroxycodone Urine NEGATIVE NG/ML (CUTOFF=50); Oxycodone Urine NEGATIVE NG/ML (CUTOFF=50)
== END 2018-12-26 17:55 ==
LOC: ED 14:55 → 2N 14:55 → SUATTDRO 18:21 → 2N 19:38
DX: F41.9 Anxiety disorder, unspecified; R07.9 Chest pain, unspecified; R45.851 Suicidal ideations; I25.2 Old myocardial infarction; I25.10 Atherosclerotic heart disease of native coronary artery without angina pectoris; Z95.1 Presence of aortocoronary bypass graft; I10 Essential (primary) hypertension; F32.9 Major depressive disorder, single episode, unspecified; M79.602 Pain in left arm; E87.6 Hypokalemia; R06.02 Shortness of breath; Z79.02 Long term (current) use of antithrombotics/antiplatelets; Z82.49 Family history of ischemic heart disease and other diseases of the circulatory system; Z79.82 Long term (current) use of aspirin

== ENCOUNTER 2018-12-26 17:55 | Inpatient (IN) ==
[2018-12-26] MEDS ORDERED: ALUMINUM/MAGNESIUM SUSP 30 ML UDC PO PRN (19:09)
[2018-12-26] MEDS ORDERED: BISMUTH SUBSALICYLATE PER ML OMNICELL CHARGE PO PRN (19:09)
[2018-12-26] MEDS ORDERED: MAGNESIUM HYDROXIDE SUSP 30 ML UDC PO PRN (19:09)
[2018-12-26] MEDS ORDERED: SODIUM CHLORIDE 0.65% NA SOLN 45 ML (OCEAN) PRN (19:09)
[2018-12-27] MEDS: ATORVASTATIN 40 MG TAB PO SCH (08:59)
[2018-12-27] MEDS: LISINOPRIL 20 MG TAB PO SCH (08:59)
[2018-12-27] MEDS: CLOPIDOGREL BISULFATE 75 MG TAB PO SCH (08:59)
[2018-12-27] MEDS: METOPROLOL SUCC 25MG EXT REL TAB PO SCH (08:59)
[2018-12-27] MEDS: ASPIRIN 81 MG CHEW PO SCH (08:59)
--- NOTE | 2018-12-27 15:59 | History & Physical ---
Date of Service December 27, 2018 Impression / Recommendations Impression 53-year-old male admitted medically on 12/25/2018 for cardiac workup transferred to psychiatry for voluntary admission on 12/26/18 due to ongoing suicidal ideations in the context of ongoing depression and anxiety. He continues to feel depressed and anxious with negative self talk and poor sense of self-worth, hopelessness as well. He continues to have SI and cannot committ to being able to be safe outside of the hospital locked unit. Inpatient care is the least restrictive and most appropriate setting for care at this time (1) Depression: - agree with admission to locked unit as he reports ongoing SI - discussed medications to include possiblity of viibryd vs. combination of buspar + wellbutrin to target depression anxiety and avoid sexual SE. Viibryd is not formulary at [facility] so we agreed to the latter. Discussed r/b/se/a and rational for combination treatment. - discussed group milieu, group therapy, and individual goals while inpatient - discussed recommendation for aftercare to include psychiatrist and return to therapy (2) Anxiety: - same as depression above (3) Hypertension: - with associated CAD - continue statin, lisinopril and metoprolol, monitor HTN as lisinopril was recently increased to 20mg, if not mitigating elevated BP with time would consider further discussion [facility] internal medicine team on how to optimize treatment Inventory Assets Strengths: willingness to engage in care presently in locked unit supportive family Needs: aftercare providers safety increased social supports Risk Factors Assessment Male: Yes : Yes Do You Have Access To A Gun?: Yes Health Problems: Yes Mental Health Diagnoses: Yes Substance Use Disorders: No Previous Attempt: No Family History of Suicide: No Previous Psychiatric Hospitalization: Yes Hopelessness: Yes Smoker: No Protective Factors Assessment Gnosticist Beliefs: Yes : No Responsible for Young Children: No Employed: Yes Supportive Family: Yes Good Rapport with Provider: No Psychiatric History Identifying Data CHARANJIT TAVERAS is a 53-year-old M who has h/o CAD (s/p MD with intervention of 2 stents), HTN and depression and anxiety who was admitted on 12/26/18 17:55 on a 201 voluntary commitment for depression and anxiety with suicidal ideations as a transfer from the medical service s/p cardiac clearance for associated chest pain. Chief Complaint "I am anxious but I am not as bad as I was before I came here". History of Present Illness The patient reports a history of depression and anxiety, it worsened 3 years ago when he experienced a divorce after 22 years of marriage that came somewhat as a surprise to him. He went through 2 behavioral health admissions in November and December 2013 at that time, dx with MDD and GADand was put on medications and referred for psychiatry seeing Dr Melania Lam and therapist not allying with the first one, but finding alliance with [facility]. In Fall 2017 he was feeling improved and due to sexual side effects, and feeling well he was not seeing the need for ongoing medications and did not feel that ongoing therapy or psychiatry visits were needed and discontinued medications and appointments. 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 He reports he was experiencing increase in chest tightness along with mind racing, anxiety, difficulty sleeping (3-4hours/night) due to working 3rd shift, poor focus, and increased fatigue occurring since his transfer to [facility] at [facility] in early December 2018. He noted his mind was racing wtih a sense of hopelessness for several weeks but worsening over the 2 days prior to admission, followed by increased chest tightness which radiated to his jaw and neck similar to the pain he had in 2009 with his MD. He feels he has minimal supports and feels he is a burden to his female roommate and often does not reach out to her. He did call her whenhe was distressed and she brought him to the hospital. He noted he has low self-esteem and negative self talk and feels inadequate. He reported onset of suicidal ideation about a week prior to medical admission, and stated he felt very close to following through with his plan to overdose on medications prior to admission. He fears that if he was not in the hospital he would act on those thoughts. However, he also worries about being off of work to engage in treatment. He states he was having panic attacks every few months off medications (none on meds) and then in the last 3 weeks was having them every few days, with the most severe one prompting coming to the hospital. He continues to fear his own safety due to doubt and worry and would like to start medications and return to outpatient therapy and psychiatry. Psychiatric ROS: Pt denies homicidal ideation, self-injurious behaviors, auditory/visual hallucinations, IOR, paranoia, s/sx of elevated or mixed mood states, to include abi/hypomania, other symptoms more suggestive of a bipolar presentation, OCD, PTSD, eating disordered behavior. . Past Psychiatric History Previous Psych History: Previous Psych History: Psychiatrist: Dr. Lam at [facility] for medication management 2013 to Fall 2017 self-discontinued care Prior Therapist: Beatrice Bragg most recent [facility] , prior therapist was a poor fit Prior Admissions: two prior admission, most recent was [facility] in 12/27/2013. Current Psychiatric Diagnosis: Major depressive disorder, recurrent, severe; Generalized anxiety d/o Outpatient Services: None at this time Do You Have Access To A Gun?: No History of Previous Suicide Attempt: No Past Medication Trials: Per patient report and outpatient provider documentation: 1. Cymbalta - itching/hives 2. Effexor - helped mood and anxiety, and had low libido 3. Prozac - mild response titrated up to 60mg, stopped on his own 4. Wellbutrin - ineffective in combination with Zoloft to improve libido, noted as modestly helpful in the outpt record (XL 300mg) he recalls feeling activated by that med 5. Zoloft - decreased libido 6. Trazodone - effective for sleep Current Psychiatric Diagnosis: major depressive disorder recurrent Do You Have Access To A Gun?: Yes Describe Attempts in the Past: none Allergies Allergy/AdvReac Type Severity Reaction Status Date / Time No Known Allergies Allergy Unverified 12/25/18 15:47 Home Medications Home Medications Medication Instructions Recorded Confirmed Type aspirin [Aspirin Low Dose] 81 mg PO DAILY 12/25/18 12/25/18 History atorvastatin 40 mg PO DAILY 12/25/18 12/25/18 History clopidogrel 75 mg PO DAILY 12/25/18 12/25/18 History lisinopril 20 mg PO DAILY 12/25/18 12/25/18 History metoprolol succinate 25 mg PO DAILY 12/25/18 12/25/18 History acetaminophen [Mapap 650 mg PO Q4H PRN #30 tab 12/26/18 Rx (acetaminophen)] ranitidine HCl 150 mg PO BID #60 tab 12/26/18 Rx Family History Family History of: Depression and Alcoholism/Drug Abuse Family Mental Health History Comment: dad with depression and PTSD from [place] 3 uncles with alcoholism brother with D&A abuse - no current relationship Alcohol History Hx of Alcohol Use Over the Past 12 Months: Yes (3 or 4 beers every 2 to 3 weeks) AUDIT Total Score: 4 "socially" 4-5 drinks 1-2 times a month, denies illicit substance use Smoking Use Have You Smoked or Used Tobacco Products in the Last 30 Days: No Smoking Status: Never smoker Substance History Hx of Prescription Med Misuse Over the Past 12 Months: No Hx of Over the Counter Med Misuse Over the Past 12 Months: No Hx of Inhalent Misuse Over the Past 12 Months: No Hx of Organic Substance Use Over the Past 12 Months: No Hx of Illegal Substances/Street Drug Use Over Past 12 Months: No Problems as a Result of Past Substance Use: None Identified Personal History Highest Grade Completed: College Beliefs That Will Affect Care: None Additional Comments: Living Arrangements: Apartment (With female roommate) Childhood: Patient was born in [place], believes he had a "normal" childhood. 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 He states the most traumatic events in his life where his divorce and his heart attack. Patient History Social History Preferred Language: Uruguayan Communication Ability: Effective Gluing Machine Operator Automatic Required: No Beliefs That Will Affect Care: None Current Living Situation: Other Current Living Situation Comment: with roommate Feels Safe at Home: Yes Smoking Status: Never smoker Hx Alcohol Use: Yes Hx Substance Use: No Review of Systems Review of Systems: Denies symptoms other than noted above on 10 system Review of symptoms Physical Exam Psychiatric: Orientation: alert and oriented x 3 Apperance: appropriately dressed Eye Contact: good eye contact Motor Behavior: steady gait and station and no abnormal motor movements Speech: normal rate/rhythm/volume of speech Affect: + depressed affect Mood: + depressed mood and + anxious mood Thought Process: goal directed thought process Thought Content: + hopelessness, + worthlessness, + loneliness and + self deprecation Suicidal Thoughts: denies suicidal intent (denies intention or plan to act in the hospital); + reports suicidal thoughts and + reports suicidal plan Homicidal Thoughts: denies homicidal thoughts Hallucinations: no auditory hallucinations and no visual hallucinations Cognition: recent memory grossly intact and remote memory grossly intact Estimated Intelligence: average estimated intelligence Insight: + fair insight Judgement: good judgement Vital Signs (Past 24 Hours): Last Vital Signs Temp 36.6 C 12/27/18 06:50 Pulse 53 L 12/27/18 09:03 Resp 18 12/27/18 06:50 BP 150/85 H 12/27/18 09:03 Results & Data Current Inpatient Medications Current Inpatient Medications: Current Inpatient Medications Acetaminophen (Tylenol) 650 mg PO Q4H PRN PRN Reason: Headache or Minor Fever Stop: 01/25/19 19:08 Al Hydrox/Mg Hydrox/Simethicone (Maalox) 30 ml PO Q4H PRN PRN Reason: GI Upset Stop: 01/25/19 19:08 Aspirin (Aspirin Chew) 81 mg PO DAILY [facility] Stop: 01/26/19 08:59 Last Admin: 12/27/18 08:59 Dose: 81 mg Documented by: Atorvastatin Calcium (Lipitor) 40 mg PO QAM [facility] Stop: 01/26/19 08:59 Last Admin: 12/27/18 08:59 Dose: 40 mg Documented by: Bismuth Subsalicylate (Kaopectate) 15 ml PO PRN PRN PRN Reason: Loose Stool Stop: 01/25/19 19:08 Clopidogrel Bis[facility] ([facility]avix) [facility] Stop: 01/26/19 08:59 Last Admin: 12/27/18 08:59 Dose: 75 mg Documented by: Hydroxyzine HCl (Vistaril) 25 mg PO Q4H PRN PRN Reason: Anxiety Stop: 01/25/19 19:08 Hydroxyzine HCl (Vistaril) 50 mg PO HSZ PRN PRN Reason: Insomnia Stop: 01/25/19 19:08 Last Admin: 12/26/18 21:11 Dose: 50 mg Documented by: Lisinopril (Zestril) 20 mg PO QAM [facility] Stop: 01/26/19 08:59 Last Admin: 12/27/18 08:59 Dose: 20 mg Documented by: Magnesium Hydroxide (Milk Of Magnesia) 30 ml PO DAILY PRN PRN Reason: Heartburn Stop: 01/25/19 19:08 Metoprolol Succinate (Toprol Xl) [facility] Stop: 01/26/19 08:59 Last Admin: 12/27/18 08:59 Dose: Not Given Documented by: Ranitidine HCl (Zantac) 150 mg PO BID [facility] Stop: 01/25/19 20:59 Last Admin: 12/27/18 08:59 Dose: 150 mg Documented by: Sodium Chloride ([place] Nasal) 1 - 2 sprays NA PRN PRN PRN Reason: Nasal Dryness/Congestion Stop: 01/25/19 19:08 CPT Code CPT Code Initial Hospital Care: 20028
[2018-12-28] MEDS: METOPROLOL SUCC 25MG EXT REL TAB PO SCH ×2 (08:44→16:31)
[2018-12-28] MEDS: CLOPIDOGREL BISULFATE 75 MG TAB PO SCH (08:45)
[2018-12-28] MEDS: BuPROPion SR 100 MG TABCR PO SCH (08:45)
[2018-12-28] MEDS: ASPIRIN 81 MG CHEW PO SCH (08:45)
[2018-12-28] MEDS: ATORVASTATIN 40 MG TAB PO SCH (08:45)
[2018-12-28] MEDS: LISINOPRIL 20 MG TAB PO SCH (08:45)
[2018-12-28] MEDS: ACETAMINOPHEN 325 MG TAB PO PRN (09:48)
--- NOTE | 2018-12-28 14:30 | Psychiatric Progress Note ---
Date of Service December 28, 2018 Impression / Recommendations Impression 53-year-old male admitted medically on 12/25/2018 for cardiac workup transferred to psychiatry for voluntary admission on 12/26/18 due to ongoing suicidal ideations in the context of ongoing depression and anxiety. He continues to feel depressed and anxious with negative self talk and poor sense of self-worth, hopelessness as well. He continues to have SI and cannot commit to being able to be safe outside of the hospital locked unit. Inpatient care is the least restrictive and most appropriate setting for care at this time (1) Depression: 12/27/18 - agree with admission to locked unit as he reports ongoing SI - discussed medications to include possibility of viibryd vs. combination of buspar + wellbutrin to target depression anxiety and avoid sexual SE. Viibryd is not formulary at [facility] so we agreed to the latter. Discussed r/b/se/a and rational for combination treatment. - discussed group milieu, group therapy, and individual goals while inpatient - discussed recommendation for aftercare to include psychiatrist and return to therapy 12/28/18 - increase vistaril to 100mg/hs, and continue all other medications as written (2) Anxiety: - same as depression above (3) Hypertension: 12/27/18 - with associated CAD - continue statin, lisinopril and metoprolol, monitor HTN as lisinopril was recently increased to 20mg, if not mitigating elevated BP with time would consider further discussion [facility] internal medicine team on how to optimize treatment 12/28/18 - lisinopirl is optimized, and although he is only on low dose metoprolol his pulse is low at 59 so no clear room to optimize, will consult Internal medicine to evaluate and treat ongoing HTN Inventory Assets Strengths: willingness to engage in care presently in locked unit supportive family Needs: aftercare providers safety increased social supports Risk Factors Assessment Male: Yes : Yes Do You Have Access To A Gun?: Yes Health Problems: Yes Mental Health Diagnoses: Yes Substance Use Disorders: No Previous Attempt: No Family History of Suicide: No Previous Psychiatric Hospitalization: Yes Hopelessness: Yes Smoker: No Protective Factors Assessment Judaism Beliefs: Yes : No Responsible for Young Children: No Employed: Yes Supportive Family: Yes Good Rapport with Provider: No Interval History Chief Complaint "I did not sleep well". Review of Systems Sleep Information Total Hours of Sleep: 6.25 Sleep Comments: received a prn dose of vistaril for sleep aid Meal Information Percent Meal Consumed - Breakfast: 100 Percent Meal Consumed - Lunch: 100 Percent Meal Consumed - Dinner: 75 Subjective Subjective Patient was seen & assessed and interval progress reviewed with Treatment Team He noted he has trouble staying asleep usually requiring 7-8hours/night. He noted he took vistaril last night but did not help his sleep. He did take trazodone in the past from his outpatient provider remotely and he felt groggy in the AM. He notes that he is tolerating the buspar not having SE. He took SR wellbutrin 100mg today and does not beleive it was the cause of his AM anxiety as he felt anxious prior to taking it and his anxiety has gone down over the course of the day some. Mood this Am was a 4/10, maybe 5-6 after visit with family and family meeting Anxiety is a 5-6/10 this Am and now down to a 3 after the visits. He appreciated the family meeting, feels "they get it" and are supportive. However he notes last night and again this morning in his worry about "what is going to happen when I get out, will I be able to do it?" He had SI, and tearful "not as strong as when I came in but I still am worried." Other than poor sleep he denies physical concerns on ROS. Physical Exam Psychiatric Orientation: alert and oriented x 3 Apperance: appropriately dressed Eye Contact: good eye contact Motor Behavior: steady gait and station and no abnormal motor movements Speech: normal rate/rhythm/volume of speech Affect: + depressed affect Mood: + depressed mood and + anxious mood Thought Process: goal directed thought process Thought Content: + hopelessness, + worthlessness, + loneliness and + self deprecation Suicidal Thoughts: denies suicidal intent (denies intention or plan to act in the hospital); + reports suicidal thoughts and + reports suicidal plan Homicidal Thoughts: denies homicidal thoughts Hallucinations: no auditory hallucinations and no visual hallucinations Cognition: recent memory grossly intact and remote memory grossly intact Estimated Intelligence: average estimated intelligence Insight: + fair insight Judgement: good judgement Vital Signs (Past 24 Hours) Last Vital Signs Temp 36.4 C L 12/28/18 06:43 Pulse 59 L 12/28/18 11:33 Resp 18 12/28/18 06:43 BP 164/90 H 12/28/18 11:33 Results & Data Current Inpatient Medications Current Inpatient Medications: Current Inpatient Medications Acetaminophen (Tylenol) 650 mg PO Q4H PRN PRN Reason: Headache or Minor Fever Stop: 01/25/19 19:08 Last Admin: 12/28/18 09:48 Dose: 650 mg Documented by: Al Hydrox/Mg Hydrox/Simethicone (Maalox) 30 ml PO Q4H PRN PRN Reason: GI Upset Stop: 01/25/19 19:08 Aspirin (Aspirin Chew) 81 mg PO DAILY [facility] Stop: 01/26/19 08:59 Last Admin: 12/28/18 08:45 Dose: 81 mg Documented by: Atorvastatin Calcium (Lipitor) [facility] Stop: 01/26/19 08:59 Last Admin: 12/28/18 08:45 Dose: 40 mg Documented by: Bismuth Subsalicylate (Kaopectate) 15 ml PO PRN PRN PRN Reason: Loose Stool Stop: 01/25/19 19:08 Bupropion HCl (Wellbutrin-Sr) 100 mg PO [facility] Stop: 01/27/19 08:59 Last Admin: 12/28/18 08:45 Dose: 100 mg Documented by: Buspirone HCl (Buspar) 10 mg PO BID [facility] Stop: 01/26/19 20:59 Last Admin: 12/28/18 08:45 Dose: 10 mg Documented by: Clopidogrel Bisulfate (Plavix) 75 mg [facility] Stop: 01/26/19 08:59 Last Admin: 12/28/18 08:45 Dose: 75 mg Documented by: Hydroxyzine HCl (Vistaril) 25 mg PO Q4H PRN PRN Reason: Anxiety Stop: 01/25/19 19:08 Hydroxyzine HCl (Vistaril) 50 mg PO HSZ PRN PRN Reason: Insomnia Stop: 01/25/19 19:08 Last Admin: 12/27/18 22:39 Dose: 50 mg Documented by: Lisinopril (Zestril) 20 mg PO [facility] Stop: 01/26/19 08:59 Last Admin: 12/28/18 08:45 Dose: 20 mg Documented by: Magnesium Hydroxide (Milk Of Magnesia) 30 ml PO DAILY PRN PRN Reason: Heartburn Stop: 01/25/19 19:08 Metoprolol Succinate (Toprol Xl) 25 mg PO QAM [facility] Stop: 01/26/19 08:59 Last Admin: 12/28/18 08:44 Dose: Not Given Documented by: Ranitidine HCl (Zantac) 150 mg PO BID [facility] Stop: 01/25/19 20:59 Last Admin: 12/28/18 08:45 Dose: 150 mg Documented by: Sodium Chloride ([place] Nasal) 1 - 2 sprays NA PRN PRN PRN Reason: Nasal Dryness/Congestion Stop: 01/25/19 19:08 Post Discharge Appointments Primary Care Physician Name Of Family Doctor: Carlee Gu [facility] Therapist Name of Therapist: Carlos CPT Code CPT Code 63866
[2018-12-28] MEDS ORDERED: AMLODIPINE BESYLATE 5 MG TAB PO ONE (14:52)
--- NOTE | 2018-12-28 15:06 | Consultation ---
Date of Consultation December 28, 2018 Assessment & Plan (1) Hypertension: BPs persistently in the 170s at times. Could be due to anxiety but also he was not given his Toprol XL for the last 2 days due to HR in the 50s. As he is asymptomatic with bradycardia, no concerns for this Nonetheless, will decrease dose of Toprol XL to 12.5mg and make parameters to hold for < 55 bpm , continue lisinopril 20mg daily, and ADD amlodipine 5mg daily -follow BP (2) Suicidal ideation: admitted to inpatient Psychiatry for treatment for this (3) Depression: treatment as per Psych -was started on Wellbutrin, Buspar, Vistaril (4) Anxiety: as above (5) Coronary artery disease: h/o stents in the past ruled out for ACS on previous recent hospitalization -no chest pain -continue ASA, statin, Plavix (6) DVT prophylaxis: Ambulation Dispo-remain on Mental Health Unit Hospitalist service will follow along to check on BPs after starting amlodipine History of Present Illness Requesting Physician: Dr. Kline Reason for Consultation: High blood pressure Attending Physician: Carla Kline MD History of Present Illness This is a 53 yo M with PMHx of CAD s/p LA in 2009 with 2 coronary stents, HTN, depression and anxiety, who was recently admitted to the hospital for atypical chest pain and worsening depression, anxiety, and suicidal ideations. At that time he was ruled out for AVS and then discharged to inpatient Psych for further treatment for his depression given +SI. Since discharge, his BPs have been significantly elevated in the 170s systolic at times. Hospitalist service consulted to see about assisting with BP control Pt reports he is doing well. Denies headache or lightheadedness, denies nausea, denies chest pain or SOB, no abd pain. He feels his mood is "a little better." Denies visual changes Allergies Allergy/AdvReac Type Severity Reaction Status Date / Time No Known Allergies Allergy Unverified 12/25/18 15:47 Home Medications Home Medications Medication Instructions Recorded Confirmed Type aspirin [Aspirin Low Dose] 81 mg PO DAILY 12/25/18 12/28/18 History atorvastatin 40 mg PO DAILY 12/25/18 12/28/18 History clopidogrel 75 mg PO DAILY 12/25/18 12/28/18 History lisinopril 20 mg PO DAILY 12/25/18 12/28/18 History acetaminophen [Mapap 650 mg PO Q4H PRN #30 tab 12/26/18 12/28/18 Rx (acetaminophen)] ranitidine HCl 150 mg PO BID #60 tab 12/26/18 12/28/18 Rx metoprolol succinate 25 mg PO DAILY 12/28/18 12/28/18 History Patient History Medical History Suicidal ideation (Acute) Anxiety Depression Chest pain (Acute) Coronary artery disease (Chronic) Depression Hx of myocardial infarction Surgical History H/O percutaneous transluminal coronary angioplasty (Resolved) Stented coronary artery (Chronic) History of coronary artery stent placement Family History Other Family history non-contributory Social History Preferred Language: Norwegian Communication Ability: Effective Education Department Chair Required: No Beliefs That Will Affect Care: None Current Living Situation: Other Current Living Situation Comment: with roommate Feels Safe at Home: Yes Smoking Status: Never smoker Hx Alcohol Use: Yes Hx Substance Use: No Review of Systems Review of Systems: All systems reviewed & are unremarkable except as noted in HPI & below Physical Exam Constitutional: WD/WN, vitals as above Eyes: PERRL, conjunctivae normal, anicteric sclerae ENMT: external ear and nose normal, oropharynx normal Neck: trachea midline, no thyromegaly Respiratory: normal respiratory effort, lungs clear to auscultation Cardiovascular: RRR, no murmur, no edema Gastrointestinal (Abdomen): normal bowel sounds, soft, nontender, no hepatosplenomegaly Musculoskeletal: Extremities: extremities normal to inspection; no cyanosis and no clubbing Skin: no rashes, warm and dry Neurologic: moves all extremities and awake; no focal motor deficits Psychiatric: A+Ox3, euthymic affect Results & Data Vital Signs (Past 12 Hours) Vital Signs Temp Pulse Resp BP 12/28/18 11:33 59 L 164/90 H 12/28/18 08:43 52 L 171/98 H 12/28/18 06:44 55 L 124/81 12/28/18 06:43 36.4 C L 52 L 18 125/78
[2018-12-29] MEDS: ATORVASTATIN 40 MG TAB PO SCH (08:45)
[2018-12-29] MEDS: CLOPIDOGREL BISULFATE 75 MG TAB PO SCH (08:45)
[2018-12-29] MEDS: ASPIRIN 81 MG CHEW PO SCH (08:45)
[2018-12-29] MEDS: METOPROLOL SUCC 25MG EXT REL TAB PO SCH (08:46)
[2018-12-29] MEDS: LISINOPRIL 20 MG TAB PO SCH (08:46)
[2018-12-29] MEDS: BuPROPion SR 100 MG TABCR PO SCH (08:46)
[2018-12-29] MEDS: AMLODIPINE BESYLATE 5 MG TAB PO SCH (08:47)
[2018-12-29] MEDS: ACETAMINOPHEN 325 MG TAB PO PRN (08:54)
--- NOTE | 2018-12-29 13:53 | Psychiatric Progress Note ---
Date of Service December 29, 2018 Impression / Recommendations Impression 53-year-old male admitted medically on 12/25/2018 for cardiac workup transferred to psychiatry for voluntary admission on 12/26/18 due to ongoing suicidal ideations in the context of ongoing depression and anxiety. He continues to feel depressed and anxious with negative self talk and poor sense of self-worth, hopelessness as well. He continues to have SI and cannot commit to being able to be safe outside of the hospital locked unit. Inpatient care is the least restrictive and most appropriate setting for care at this time (1) Depression: 12/27/18 - agree with admission to locked unit as he reports ongoing SI - discussed medications to include possibility of viibryd vs. combination of buspar + wellbutrin to target depression anxiety and avoid sexual SE. Viibryd is not formulary at [facility] so we agreed to the latter. Discussed r/b/se/a and rational for combination treatment. - discussed group milieu, group therapy, and individual goals while inpatient - discussed recommendation for aftercare to include psychiatrist and return to therapy 12/28/18 - increase vistaril to 100mg/hs, and continue all other medications as written 12/29/18 - increase wellbutrin to 200mg today (future will be SR 200mg/AM , he was activated on Wellbutrin XL 300mg in the past with some poor sleep) - increase buspar to 15mg po bid today as well - encouraged him to engage with CBT worksheet in his packet or to get one from therapist to challenge his worries about failing at his job (2) Anxiety: - same as depression above (3) Hypertension: 12/27/18 - with associated CAD - continue statin, lisinopril and metoprolol, monitor HTN as lisinopril was recently increased to 20mg, if not mitigating elevated BP with time would consider further discussion with internal medicine team on how to optimize treatment 12/28/18 - lisinopril is optimized, and although he is only on low dose metoprolol his pulse is low at 59 so no clear room to optimize, will consult Internal medicine to evaluate and treat ongoing HTN 12/29/18 - appreciate Internal Medicine input, appreciate modification on metoprolol XL down to 12.5mg with hold parameters for pulse <55bpm, and addition of amlodipine 5mg, initial BP's seem to be responding while his mid-day vitals are likely elevated due to anxiety about his physical sensation will monitor. aware to continue lisinopril 20mg. Inventory Assets Strengths: willingness to engage in care presently in locked unit supportive family Needs: aftercare providers safety increased social supports Risk Factors Assessment Male: Yes : Yes Do You Have Access To A Gun?: Yes Health Problems: Yes Mental Health Diagnoses: Yes Substance Use Disorders: No Previous Attempt: No Family History of Suicide: No Previous Psychiatric Hospitalization: Yes Hopelessness: Yes Smoker: No Protective Factors Assessment Yarsanism Beliefs: Yes : No Responsible for Young Children: No Employed: Yes Supportive Family: Yes Good Rapport with Provider: No Interval History Chief Complaint "Still anxious and worried about things". Review of Systems Sleep Information Total Hours of Sleep: 7.75 Sleep Comments: pt given vistaril per rn. pt on q-15 minute checks Meal Information Percent Meal Consumed - Breakfast: 100 Percent Meal Consumed - Lunch: 100 Percent Meal Consumed - Dinner: 100 Subjective Subjective Patient was seen & assessed and interval progress reviewed with Treatment Team. He notes he continues to worry about his job "will I be able to do it?" and worries about is he good enough to be in a relationship here, and he continues to have poor self-confidence. He states he has been a catastrophizer for some time and assumes a negative aspect of other's behaviors due to his negative lens. He notes his mood remains down, "not as bad as when I came in but not good either." He has some "fluttery feeling" in his chest states he can touch it, does not feel like it is inside, but feels odd "like muscle twitch today" He was initially worried because of heart concerns but states he is not having Chest pressure or pain, no light headedness no dizzyness, "I am just reporting it becaue I am on new medications" Nursing obtained vitals prior to provider seeing anali and they were elevated. He is calm and regular pulse and NAD in the office with this provider even during a breif 5s when reporting having the same symptom. He notes he is trying to learn CBT strategies to include breathing and recognizing his tendencies.He is tolerating the medication denying side effects. He denies other sx on ROS other than noted above. Physical Exam Psychiatric A+Ox3, euthymic affect Orientation: alert and oriented x 3 Apperance: appropriately dressed Eye Contact: good eye contact Motor Behavior: steady gait and station and no abnormal motor movements Speech: normal rate/rhythm/volume of speech Affect: + depressed affect Mood: + depressed mood and + anxious mood Thought Process: goal directed thought process Thought Content: + hopelessness, + worthlessness, + loneliness and + self deprecation Suicidal Thoughts: denies suicidal intent (denies intention or plan to act in the hospital); + reports suicidal thoughts and + reports suicidal plan Homicidal Thoughts: denies homicidal thoughts Hallucinations: no auditory hallucinations and no visual hallucinations Cognition: recent memory grossly intact and remote memory grossly intact Estimated Intelligence: average estimated intelligence Insight: + fair insight Judgement: good judgement Vital Signs (Past 24 Hours) Last Vital Signs Temp 36.3 C L 12/29/18 06:59 Pulse 61 12/29/18 07:00 Resp 18 12/29/18 06:59 BP 131/77 12/29/18 07:00 Results & Data Current Inpatient Medications Current Inpatient Medications: Current Inpatient Medications Acetaminophen (Tylenol) 650 mg PO Q4H PRN PRN Reason: Headache or Minor Fever Stop: 01/25/19 19:08 Last Admin: 12/29/18 08:54 Dose: 650 mg Documented by: Al Hydrox/Mg Hydrox/Simethicone (Maalox) 30 ml PO Q4H PRN PRN Reason: GI Upset Stop: 01/25/19 19:08 Amlodipine Bes[facility] ([facility]) [facility] Stop: 01/28/19 08:59 Last Admin: 12/29/18 08:47 Dose: 5 mg Documented by: Aspirin (Aspirin Chew) 81 mg PO DAILY [facility] Stop: 01/26/19 08:59 Last Admin: 12/29/18 08:45 Dose: 81 mg Documented by: Atorvastatin Calcium (Lipitor) 40 mg PO QAM [facility] Stop: 01/26/19 08:59 Last Admin: 12/29/18 08:45 Dose: 40 mg Documented by: Bismuth Subsalicylate (Kaopectate) 15 ml PO PRN PRN PRN Reason: Loose Stool Stop: 01/25/19 19:08 Bupropion HCl (Wellbutrin-Sr) [facility] Stop: 01/27/19 08:59 Last Admin: 12/29/18 08:46 Dose: 100 mg Documented by: Buspirone HCl (Buspar) 10 mg PO BID [facility] Stop: 01/26/19 20:59 Last Admin: 12/29/18 08:45 Dose: 10 mg Documented by: Clopidogrel Bisulfate (Plavix) [facility] Stop: 01/26/19 08:59 Last Admin: 12/29/18 08:45 Dose: 75 mg Documented by: Hydroxyzine HCl (Vistaril) 25 mg PO Q4H PRN PRN Reason: Anxiety Stop: 01/25/19 19:08 Hydroxyzine HCl (Vistaril) 100 mg PO HSZ PRN PRN Reason: Insomnia Stop: 01/25/19 19:08 Last Admin: 12/28/18 22:08 Dose: 100 mg Documented by: Lisinopril (Zestril) 20 mg PO [facility] Stop: 01/26/19 08:59 Last Admin: 12/29/18 08:46 Dose: 20 mg Documented by: Magnesium Hydroxide (Milk Of Magnesia) 30 ml PO DAILY PRN PRN Reason: Heartburn Stop: 01/25/19 19:08 Metoprolol Succinate (Toprol Xl) 12.5 mg PO [facility] Stop: 01/27/19 15:14 Last Admin: 12/29/18 08:46 Dose: 12.5 mg Documented by: Ranitidine HCl (Zantac) 150 mg PO BID [facility] Stop: 01/25/19 20:59 Last Admin: 12/29/18 08:46 Dose: 150 mg Documented by: Sodium Chloride ([place] Nasal) 1 - 2 sprays NA PRN PRN PRN Reason: Nasal Dryness/Congestion Stop: 01/25/19 19:08 Post Discharge Appointments Primary Care Physician Name Of Family Doctor: Carlee Gu [facility] Therapist Name of Therapist: Carlos CPT Code CPT Code 52585
[2018-12-29] MEDS ORDERED: BuPROPion SR 100 MG TABCR PO ONE (13:59)
[2018-12-30] MEDS: ASPIRIN 81 MG CHEW PO SCH (08:11)
[2018-12-30] MEDS: AMLODIPINE BESYLATE 5 MG TAB PO SCH (08:12)
[2018-12-30] MEDS: ATORVASTATIN 40 MG TAB PO SCH (08:12)
[2018-12-30] MEDS: CLOPIDOGREL BISULFATE 75 MG TAB PO SCH (08:13)
[2018-12-30] MEDS: BuPROPion SR 100 MG TABCR PO SCH (08:14)
[2018-12-30] MEDS: LISINOPRIL 20 MG TAB PO SCH (08:14)
[2018-12-30] MEDS: METOPROLOL SUCC 25MG EXT REL TAB PO SCH (08:14)
--- NOTE | 2018-12-30 12:00 | Psychiatric Progress Note ---
Date of Service December 30, 2018 Impression / Recommendations Impression Pt reporting improvement in mood and anxiety, though still appearing rather flat in affect. Ongoing anxiety related to returning to work and ability to manage stressors, but feeling he has regained support of children and roommate. Denies SI at this point today, but would suggest ongoing inpatient admission until consistency of reported improvements can be observed. Inpatient psychiatric treatment is medically necessary to ensure improvements are likely to be sustainable in the outpatient setting, and patient is at high risk of decompensation and likely harm to self if discharged prematurely. (1) Depression: 12/27/18 - agree with admission to locked unit as he reports ongoing SI - discussed medications to include possibility of viibryd vs. combination of buspar + wellbutrin to target depression anxiety and avoid sexual SE. Viibryd is not formulary at [facility] so we agreed to the latter. Discussed r/b/se/a and rational for combination treatment. - discussed group milieu, group therapy, and individual goals while inpatient - discussed recommendation for aftercare to include psychiatrist and return to therapy 12/28/18 - increase vistaril to 100mg/hs, and continue all other medications as written 12/29/18 - increase wellbutrin to 200mg today (future will be SR 200mg/AM , he was activated on Wellbutrin XL 300mg in the past with some poor sleep) - increase buspar to 15mg po bid today as well - encouraged him to engage with CBT worksheet in his packet or to get one from therapist to challenge his worries about failing at his job 12/30 - Continue current medication regimen as above - Willing to consider trial of Viibryd or Trintrillix as an outpatient if indicated - Continue to encourage development of healthy and effective coping strategies (2) Anxiety: - same as depression above (3) Hypertension: 12/27/18 - with associated CAD - continue statin, lisinopril and metoprolol, monitor HTN as lisinopril was recently increased to 20mg, if not mitigating elevated BP with time would consider further discussion with internal medicine team on how to optimize treatment 12/28/18 - lisinopril is optimized, and although he is only on low dose metoprolol his pulse is low at 59 so no clear room to optimize, will consult Internal medicine to evaluate and treat ongoing HTN 12/29/18 - appreciate Internal Medicine input, appreciate modification on metoprolol XL down to 12.5mg with hold parameters for pulse <55bpm, and addition of amlodipine 5mg, initial BP's seem to be responding while his mid-day vitals are likely elevated due to anxiety about his physical sensation will monitor. aware to continue lisinopril 20mg. 12/30 - BP's within normal parameters today Inventory Assets Strengths: willingness to engage in care presently in locked unit supportive family Needs: aftercare providers safety increased social supports Risk Factors Assessment Male: Yes : Yes Do You Have Access To A Gun?: Yes Health Problems: Yes Mental Health Diagnoses: Yes Substance Use Disorders: No Previous Attempt: No Family History of Suicide: No Previous Psychiatric Hospitalization: Yes Hopelessness: Yes Smoker: No Protective Factors Assessment Druze Beliefs: Yes : No Responsible for Young Children: No Employed: Yes Supportive Family: Yes Good Rapport with Provider: No Interval History Identifying Information CHARANJIT TAVERAS is a 53-year-old M who has h/o CAD (s/p SC with intervention of 2 stents), HTN and depression and anxiety who was admitted on 12/26/18 17:55 on a 201 voluntary commitment for depression and anxiety with suicidal ideations as a transfer from the medical service s/p cardiac clearance for associated chest pain. Chief Complaint "Yeah, I don't know. I feel like I'm less anxious at least." Review of Systems Notes Constitutional: reports some difficulty sleeping Cardiovascular: denied Respiratory: denied Gastrointestinal: denied Neurological: denied Psychiatric: denies symptoms other than stated above Total of at least 10 systems reviewed, pertinent positives as above and in HPI. Sleep Information Total Hours of Sleep: 6.75 Sleep Comments: pt on q-15 minute checks Meal Information Percent Meal Consumed - Breakfast: 100 Percent Meal Consumed - Lunch: 100 Percent Meal Consumed - Dinner: 100 Subjective Subjective Patient was seen & assessed and interval progress reviewed with Treatment Team. Staff reports the patient has reported ongoing SI, but stating it is less frequent and less "loud". Pt was seen today to assess progress since admission. Pt states he has been noticing some improvement in mood, and most especially in anxiety. He feels the combination of medication initiation and therapeutic intervention has been helpful. Pt states he continues to be "worried" about returning to work, but feels he is better prepared to manage his anxiety moving forward. We discussed his plans to resume outpatient therapy and psychiatric medication management. He denies SI to this provider so far this morning, and feels his current medications appear to be helping. He has had some difficulty sleeping due to being in the hospital setting. Pt denies other specific needs or concerns today. Physical Exam Psychiatric Orientation: alert, oriented x 3 and cooperative Apperance: appropriately dressed (in hoodie and gym shorts), appropriately groomed and appeared stated age Eye Contact: good eye contact Motor Behavior: steady gait and station and no abnormal motor movements Speech: normal rate/rhythm/volume of speech Affect: + flat affect; + mood not congruent with affect Mood: + anxious mood (specifically related to work performance); no depressed mood Reporting improvement in mood and anxiety; though affect remains flat Thought Process: goal directed thought process, linear/logical thought process and clear/coherent thought process Thought Content: reality based without delusions Suicidal Thoughts: denies suicidal thoughts (so far today; though history of episodic SI prior to admission) and denies suicidal plan Homicidal Thoughts: denies homicidal thoughts Hallucinations: no auditory hallucinations and no visual hallucinations Cognition: recent memory grossly intact, remote memory grossly intact, attention grossly intact and language grossly intact Estimated Intelligence: consistent with education level Insight: + fair insight Judgement: + fair judgement Vital Signs (Past 24 Hours) Last Vital Signs Temp 36.3 C L 12/30/18 06:54 Pulse 57 L 12/30/18 06:54 Resp 18 12/30/18 06:54 BP 127/83 12/30/18 06:54 Results & Data Current Inpatient Medications Current Inpatient Medications: Current Inpatient Medications Acetaminophen (Tylenol) 650 mg PO Q4H PRN PRN Reason: Headache or Minor Fever Stop: 01/25/19 19:08 Last Admin: 12/29/18 08:54 Dose: 650 mg Documented by: Al Hydrox/Mg Hydrox/Simethicone (Maalox) 30 ml PO Q4H PRN PRN Reason: GI Upset Stop: 01/25/19 19:08 Amlodipine Besylate (Norvasc) 5 mg PO QAM [facility] Stop: 01/28/19 08:59 Last Admin: 12/30/18 08:12 Dose: 5 mg Documented by: Aspirin (Aspirin Chew) 81 mg PO DAILY [facility] Stop: 01/26/19 08:59 Last Admin: 12/30/18 08:11 Dose: 81 mg Documented by: Atorvastatin Calcium (Lipitor) [address] [facility] Stop: 01/26/19 08:59 Last Admin: 12/30/18 08:12 Dose: 40 mg Documented by: Bismuth Subsalicylate (Kaopectate) 15 ml PO PRN PRN PRN Reason: Loose Stool Stop: 01/25/19 19:08 Bupropion HCl (Wellbutrin-Sr) [address] [facility] Stop: 01/29/19 08:59 Last Admin: 12/30/18 08:14 Dose: 200 mg Documented by: Buspirone HCl (Buspar) 15 mg PO BID [facility] Stop: 01/28/19 20:59 Last Admin: 12/30/18 08:12 Dose: 15 mg Documented by: Clopidogrel Bisulfate (Plavix) [address] [facility] Stop: 01/26/19 08:59 Last Admin: 12/30/18 08:13 Dose: 75 mg Documented by: Hydroxyzine HCl (Vistaril) 25 mg PO Q4H PRN PRN Reason: Anxiety Stop: 01/25/19 19:08 Hydroxyzine HCl (Vistaril) 100 mg PO HSZ PRN PRN Reason: Insomnia Stop: 01/25/19 19:08 Last Admin: 12/29/18 21:54 Dose: 100 mg Documented by: Lisinopril (Zestril) [address] [facility] Stop: 01/26/19 08:59 Last Admin: 12/30/18 08:14 Dose: 20 mg Documented by: Magnesium Hydroxide (Milk Of Magnesia) 30 ml PO DAILY PRN PRN Reason: Heartburn Stop: 01/25/19 19:08 Metoprolol Succinate (Toprol Xl) 12.[address] [facility] Stop: 01/27/19 15:14 Last Admin: 12/30/18 08:14 Dose: Not Given Documented by: Ranitidine HCl (Zantac) 150 mg PO BID [facility] Stop: 01/25/19 20:59 Last Admin: 12/30/18 08:14 Dose: 150 mg Documented by: Sodium Chloride ([place] Nasal) 1 - 2 sprays NA PRN PRN PRN Reason: Nasal Dryness/Congestion Stop: 01/25/19 19:08 Post Discharge Appointments Primary Care Physician Name Of Family Doctor: Carlee Gu [facility] Therapist Name of Therapist: Carlos CPT Code CPT Code 80308
[2018-12-30] MEDS: ACETAMINOPHEN 325 MG TAB PO PRN (14:29)
[2018-12-31] MEDS: ASPIRIN 81 MG CHEW PO SCH (08:28)
[2018-12-31] MEDS: CLOPIDOGREL BISULFATE 75 MG TAB PO SCH (08:28)
[2018-12-31] MEDS: AMLODIPINE BESYLATE 5 MG TAB PO SCH (08:28)
[2018-12-31] MEDS: ATORVASTATIN 40 MG TAB PO SCH (08:28)
[2018-12-31] MEDS: BuPROPion SR 100 MG TABCR PO SCH (08:29)
[2018-12-31] MEDS: METOPROLOL SUCC 25MG EXT REL TAB PO SCH (08:29)
[2018-12-31] MEDS: LISINOPRIL 20 MG TAB PO SCH (08:29)
--- NOTE | 2018-12-31 16:09 | Psychiatric Progress Note ---
Date of Service December 31, 2018 Impression / Recommendations Impression Affect remains blunted today, though patient reports feeling mood has improved greatly and anxiety is reduced. Admits to anxiety related to work, but feels this is reduced from yesterday. Pt admits to feeling comfortable with discharge tomorrow, provided he has consistency of mood tonight. Given his history, would be beneficial to ensure improvements reported are consistent prior to discharge to reduce likelihood of decompensation and readmission, or potential for serious harm to self. (1) Depression: 12/27/18 - agree with admission to locked unit as he reports ongoing SI - discussed medications to include possibility of viibryd vs. combination of buspar + wellbutrin to target depression anxiety and avoid sexual SE. Viibryd is not formulary at [facility] so we agreed to the latter. Discussed r/b/se/a and rational for combination treatment. - discussed group milieu, group therapy, and individual goals while inpatient - discussed recommendation for aftercare to include psychiatrist and return to therapy 12/28/18 - increase vistaril to 100mg/hs, and continue all other medications as written 12/29/18 - increase wellbutrin to 200mg today (future will be SR 200mg/AM , he was activated on Wellbutrin XL 300mg in the past with some poor sleep) - increase buspar to 15mg po bid today as well - encouraged him to engage with CBT worksheet in his packet or to get one from therapist to challenge his worries about failing at his job 12/30 - Continue current medication regimen as above - Willing to consider trial of Viibryd or Trintrillix as an outpatient if in dicated - Continue to encourage development of healthy and effective coping strategies 12/31 - Continue as above - Denies SI, ensure stability and consistency of mood prior to discharge (2) Anxiety: - same as depression above (3) Hypertension: 12/27/18 - with associated CAD - continue statin, lisinopril and metoprolol, monitor HTN as lisinopril was recently increased to 20mg, if not mitigating elevated BP with time would consider further discussion with internal medicine team on how to optimize treatment 12/28/18 - lisinopril is optimized, and although he is only on low dose metoprolol his pulse is low at 59 so no clear room to optimize, will consult Internal medicine to evaluate and treat ongoing HTN 12/29/18 - appreciate Internal Medicine input, appreciate modification on metoprolol XL down to 12.5mg with hold parameters for pulse <55bpm, and addition of amlodipine 5mg, initial BP's seem to be responding while his mid-day vitals are likely elevated due to anxiety about his physical sensation will monitor. aware to continue lisinopril 20mg. 12/30 - BP's within normal parameters today Inventory Assets Strengths: willingness to engage in care presently in locked unit supportive family Needs: aftercare providers safety increased social supports Risk Factors Assessment Male: Yes : Yes Do You Have Access To A Gun?: Yes Health Problems: Yes Mental Health Diagnoses: Yes Substance Use Disorders: No Previous Attempt: No Family History of Suicide: No Previous Psychiatric Hospitalization: Yes Hopelessness: Yes Smoker: No Protective Factors Assessment Anabaptism Beliefs: Yes : No Responsible for Young Children: No Employed: Yes Supportive Family: Yes Good Rapport with Provider: No Interval History Identifying Information CHARANJIT TAVERAS is a 53-year-old M who has h/o CAD (s/p OK with intervention of 2 stents), HTN and depression and anxiety who was admitted on 12/26/18 17:55 on a 201 voluntary commitment for depression and anxiety with suicidal ideations as a transfer from the medical service s/p cardiac clearance for associated chest pain. Chief Complaint "Um, things are feeling better. I'm doing good." Review of Systems Notes Constitutional: reports morning lightheadedness, resolves in afternoon Cardiovascular: denied Respiratory: denied Gastrointestinal: denied Neurological: denied Psychiatric: denies symptoms other than stated above Total of at least 10 systems reviewed, pertinent positives as above and in HPI. Sleep Information Total Hours of Sleep: 8 Sleep Comments: pt given vistaril per rn. pt on q-15 minute checks Meal Information Percent Meal Consumed - Breakfast: 100 Percent Meal Consumed - Lunch: 100 Percent Meal Consumed - Dinner: 100 Subjective Subjective Patient was seen & assessed and interval progress reviewed with Treatment Team. Staff reports the patient is interactive in groups, participating supportively with peers. He is agreeable to referrals for therapy and medication management. Pt rated his mood a "5 and optimistic" last evening. Pt was seen today to assess progress since admission. Pt states he is feeling somewhat better today. He reports improvement in mood and feels his anxiety is becoming more "manageable." Pt remains somewhat concerned about maintaining his progress, but is more optimistic as he feels he has been shown the extensive support of his children and roommate. Pt's only physical concern at this time is some lightheadedness experienced in the morning, improving since yesterday. Pt denies SI at this time. He denies other needs or concerns and is considering requesting discharge tomorrow if he has a decent evening. Physical Exam Psychiatric Orientation: alert, oriented x 3 and cooperative Apperance: appropriately dressed, appropriately groomed and appeared stated age Eye Contact: good eye contact Motor Behavior: steady gait and station and no abnormal motor movements Speech: normal rate/rhythm/volume of speech Affect: + blunted affect (appearing somewhat brighter, less depressed); + affect not euthymic Mood: + anxious mood (mild, primarily related to work-stress); no depressed mood Thought Process: goal directed thought process, linear/logical thought process and clear/coherent thought process Thought Content: reality based without delusions Suicidal Thoughts: denies suicidal thoughts Homicidal Thoughts: denies homicidal thoughts Hallucinations: no auditory hallucinations and no visual hallucinations Cognition: attention grossly intact and language grossly intact Estimated Intelligence: consistent with education level Insight: + fair insight Judgement: + fair judgement Vital Signs (Past 24 Hours) Last Vital Signs Temp 36.4 C L 12/31/18 06:58 Pulse 80 12/31/18 06:58 Resp 18 12/31/18 06:58 BP 135/86 12/31/18 06:58 Results & Data Current Inpatient Medications Current Inpatient Medications: Current Inpatient Medications Acetaminophen (Tylenol) 650 mg PO Q4H PRN PRN Reason: Headache or Minor Fever Stop: 01/25/19 19:08 Last Admin: 12/30/18 14:29 Dose: 650 mg Documented by: Al Hydrox/Mg Hydrox/Simethicone (Maalox) 30 ml PO Q4H PRN PRN Reason: GI Upset Stop: 01/25/19 19:08 Amlodipine Besylate (Norvasc) 5 mg PO QAM HONEY Stop: 01/28/19 08:59 Last Admin: 12/31/18 08:28 Dose: 5 mg Documented by: Aspirin (Aspirin Chew) 81 mg PO DAILY [facility]ONEY Stop: 01/26/19 08:59 Last Admin: 12/31/18 08:28 Dose: 81 mg Documented by: Atorvastatin Calcium (Lipitor) 40 mg PO [facility] Stop: 01/26/19 08:59 Last Admin: 12/31/18 08:28 Dose: 40 mg Documented by: Bismuth Subsalicylate (Kaopectate) 15 ml PO PRN PRN PRN Reason: Loose Stool Stop: 01/25/19 19:08 Bupropion HCl (Wellbutrin-Sr) 200 mg PO [facility] Stop: 01/29/19 08:59 Last Admin: 12/31/18 08:29 Dose: 200 mg Documented by: Buspirone HCl (Buspar) 15 mg PO BID [facility] Stop: 01/28/19 20:59 Last Admin: 12/31/18 08:28 Dose: 15 mg Documented by: Clopidogrel Bisulfate (Plavix) 75 mg PO [facility] Stop: 01/26/19 08:59 Last Admin: 12/31/18 08:28 Dose: 75 mg Documented by: Hydroxyzine HCl (Vistaril) 25 mg PO Q4H PRN PRN Reason: Anxiety Stop: 01/25/19 19:08 Hydroxyzine HCl (Vistaril) 100 mg PO HSZ PRN PRN Reason: Insomnia Stop: 01/25/19 19:08 Last Admin: 12/30/18 22:02 Dose: 100 mg Documented by: Lisinopril (Zestril) 20 mg PO [facility] Stop: 01/26/19 08:59 Last Admin: 12/31/18 08:29 Dose: 20 mg Documented by: Magnesium Hydroxide (Milk Of Magnesia) 30 ml PO DAILY PRN PRN Reason: Heartburn Stop: 01/25/19 19:08 Metoprolol Succinate (Toprol Xl) 12.5 mg PO [facility] Stop: 01/27/19 15:14 Last Admin: 12/31/18 08:29 Dose: 12.5 mg Documented by: Ranitidine HCl (Zantac) 150 mg PO BID [facility] Stop: 01/25/19 20:59 Last Admin: 12/31/18 08:29 Dose: 150 mg Documented by: Sodium Chloride ([place] Nasal) 1 - 2 sprays NA PRN PRN PRN Reason: Nasal Dryness/Congestion Stop: 01/25/19 19:08 Post Discharge Appointments Primary Care Physician Name Of Family Doctor: Dr Carlee Tariq- [facility] Primary Care Provider Appointment Comment: [address], [place] [address] Psychiatrist Name of Psychiatrist: [facility] - Psychiatrist's Psychiatric Appointment Comment: [address], [place] [address] Therapist [facility] Comment: [address], [place] [address] Specialist Name of Specialist: [facility] [place] - Dr. Ash MD Phone Number for Specialist: [phone] Specialty Appointment Comment: [address] [facility], [place] [address] Contact Information Discharge Discharge Address: [facility] [address] [place] [address] [address] [address] CPT Code CPT Code 44380
[2019-01-01 06:50] VITALS: BP 131/87; TEMP 97.7
[2019-01-01] MEDS: AMLODIPINE BESYLATE 5 MG TAB PO SCH (08:31)
[2019-01-01] MEDS: ATORVASTATIN 40 MG TAB PO SCH (08:31)
[2019-01-01] MEDS: CLOPIDOGREL BISULFATE 75 MG TAB PO SCH (08:31)
[2019-01-01] MEDS: ASPIRIN 81 MG CHEW PO SCH (08:31)
[2019-01-01] MEDS: BuPROPion SR 100 MG TABCR PO SCH (08:32)
[2019-01-01] MEDS: LISINOPRIL 20 MG TAB PO SCH (08:32)
[2019-01-01] MEDS: METOPROLOL SUCC 25MG EXT REL TAB PO SCH (08:32)
--- NOTE | 2019-01-01 09:22 | Discharge Summary ---
Date of Service January 01, 2019 History of Present Illness The patient reports a history of depression and anxiety, it worsened 3 years ago when he experienced a divorce after 22 years of marriage that came somewhat as a surprise to him. He went through 2 behavioral health admissions in November and December 2013 at that time, dx with MDD and DAMIAN and was put on medications and referred for psychiatry seeing Dr Melania Lam and therapist not allying with the first one, but finding alliance with [facility]. In Fall 2017 he was feeling improved and due to sexual side effects, and feeling well he was not seeing the need for ongoing medications and did not feel that ongoing therapy or psychiatry visits were needed and discontinued medications and appointments. 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 He noted his mind was racing with a sense of hopelessness for several weeks but worsening over the 2 days prior to admission, followed by increased chest tightness which radiated to his jaw and neck similar to the pain he had in 2009 with his DC. He feels he has minimal supports and feels he is a burden to his female roommate and often does not reach out to her. He did call her when he was distressed and she brought him to the hospital. He noted he has low self-esteem and negative self talk and feels inadequate. He reported onset of suicidal ideation about a week prior to medical admission, and stated he felt very close to following through with his plan to overdose on medications prior to admission. He fears that if he was not in the hospital he would act on those thoughts. However, he also worries about being off of work to engage in treatment. He states he was having panic attacks every few months off medications (none on meds) and then in the last 3 weeks was having them every few days, with the most severe one prompting coming to the hospital. He continues to fear his own safety due to doubt and worry and would like to start medications and return to outpatient therapy and psychiatry. Psychiatric ROS: Pt denies homicidal ideation, self-injurious behaviors, auditory/visual hallucinations, IOR, paranoia, s/sx of elevated or mixed mood states, to include abi/hypomania, other symptoms more suggestive of a bipolar presentation, OCD, PTSD, eating disordered behavior. . Physical Exam Psychiatric Orientation: alert, oriented x 3 and cooperative Apperance: appropriately dressed, appropriately groomed and appeared stated age Eye Contact: + fair eye contact Motor Behavior: steady gait and station and no abnormal motor movements Speech: normal rate/rhythm/volume of speech Affect: + blunted affect "Pretty good, not as anxious." Thought Process: goal directed thought process Thought Content: + cognitive distortions (Negative thoughts about himself) and reality based without delusions Suicidal Thoughts: denies suicidal thoughts Homicidal Thoughts: denies homicidal thoughts Hallucinations: no auditory hallucinations Cognition: recent memory grossly intact, attention grossly intact and language grossly intact Estimated Intelligence: consistent with education level Insight: + fair insight Judgement: + fair judgement Vital Signs (Past 24 Hours) Last Vital Signs Temp 36.5 C 01/01/19 06:49 Pulse 56 L 01/01/19 06:50 Resp 18 01/01/19 06:49 BP 131/87 01/01/19 06:50 Principal Diagnosis Major depressive disorder, recurrent, severe without psychosis Psychiatric Data Patient was hospitalized on our unit for 6 days. Multiple medication options were discussed on admission to target depression and anxiety, including Viibryd, buspirone, and bupropion (due to lower risk of sexual side effects, which have been problematic in the past). He agreed to buspirone and bupropion, and tolerated them well. Hydroxyzine was increased to 100 mg at bedtime to target sleep, and he found it beneficial. He was encouraged to utilize CBT techniques to identify and challenge distorted thoughts. He attended and participated in groups and therapy, and was re-referred for outpatient mental health treatment, as he had dropped out of care the previous year. The hospitalist service was consulted for hypertension with associated coronary artery disease, and adjusted multiple medications including reducing metoprolol XL and adding amlodipine. He had a family meeting with his children and roommate on 12/28/2018. He was able to identify multiple stressors, including his job, unresolved grief due to the loss of his marriage, and loneliness. Cognitive distortions were identified during the session, and his family shared ideas of ways he could overcome unhealthy patterns of behavior and increased socialization. They agreed to bring in old, discontinued medications from home. Of note, family did bring in very large quantities of sertraline, fluoxetine, duloxetine, bupropion XL, and venlafaxine XR, raising concerns that he was not compliant with these medications when he was prescribed them in the past. They were safely disposed of in the pharmacy to decrease risk of overdose/suicide. Day of Discharge Assessment Staff report the patient is attending and participating in groups, is performing ADLs independently. On my assessment, he reports that his mood is "pretty good, not as anxious." He denies suicidal thoughts, and feels safe leaving the hospital. He is hoping to return to work Saturday. He states that the bi ggest contributors to his recent decompensation where his job change, working in erratic schedule with some nights and some days, and "stewing over my ex all the time." He notes he "feels lonely all the time, but I don't do anything about it." He is planning to make plans to get together with his children at least once a month, to join a gym, possibly the same when his roommate attends. He is hopeful that as he settles into his new job he will feel less anxious about it and will enjoy it more. He wants to keep working on identifying and correcting his cognitive distortions, noting that he often "assumes people think a certain way about me," and that this limits how often he reaches out to others for support. Transition of Care Transition Of Care Record: was reviewed with the patient Advance Directives Advance Directives Information Provided: Yes Advance Directives: No Mental Health Advance Directive: No Advance Directives on File: No Living Will: No Power of Yard Brakeman: No Advance Directives Reason:: Declines as Mental Health Visit. Risk Factors Assessment Risk factors were mitigated by admission to the inpatient unit, use of medications to target mood and anxiety symptoms, involving the patient in groups and therapy, working on healthy coping skills and a discharge safety plan, family meeting with his adult children and roommate, confirming no access to guns, safely disposing of old, and updated prescription medications that he had access to, and re-referring him for outpatient psychiatric care and therapy. The patient has demonstrated improvement in mood and anxiety symptoms here, and is denying suicidal ideation. He is completing ADLs independently, tolerating medications, and indicating willingness to follow up with outpatient treatment. He is requesting discharge, and is he is no longer at acute risk of harm to himself, can be managed as an outpatient at this time. Male: Yes : Yes Do You Have Access To A Gun?: Yes Health Problems: Yes Mental Health Diagnoses: Yes Substance Use Disorders: No Previous Attempt: No Family History of Suicide: No Previous Psychiatric Hospitalization: Yes Hopelessness: Yes Smoker: No Protective Factors Assessment [facility] Beliefs: Yes : No Responsible for Young Children: No Employed: Yes Supportive Family: Yes Good Rapport with Provider: No Tobacco Cessation at Discharge Tobacco Cessation Medication Prescribed at Discharge: Not Applicable/Non-Smoker Total Time Total Time Spent: Greater Than 30 Minutes Total Time Includes: Examination of the patient, Discharge Planning and Medication Reconciliation Discharge Data Consultations 12/28/18 14:34 Consult Internal Medicine Routine Hospital Course (1) Depression: 12/27/18 - agree with admission to locked unit as he reports ongoing SI - discussed medications to include possibility of viibryd vs. combination of buspar + wellbutrin to target depression anxiety and avoid sexual SE. Viibryd is not formulary at [facility] so we agreed to the latter. Discussed r/b/se/a and rational for combination treatment. - discussed group milieu, group therapy, and individual goals while inpatient - discussed recommendation for aftercare to include psychiatrist and return to therapy 12/28/18 - increase vistaril to 100mg/hs, and continue all other medications as written 12/29/18 - increase wellbutrin to 200mg today (future will be SR 200mg/AM , he was activated on Wellbutrin XL 300mg in the past with some poor sleep) - increase buspar to 15mg po bid today as well - encouraged him to engage with CBT worksheet in his packet or to get one from therapist to challenge his worries about failing at his job 12/30 - Continue current medication regimen as above - Willing to consider trial of Viibryd or Trintrillix as an outpatient if indicated - Continue to encourage development of healthy and effective coping strategies 12/31 - Continue as above - Denies SI, ensure stability and consistency of mood prior to discharge (2) Anxiety: - same as depression above (3) Hypertension: 12/27/18 - with associated CAD - continue statin, lisinopril and metoprolol, monitor HTN as lisinopril was recently increased to 20mg, if not mitigating elevated BP with time would consider further discussion with internal medicine team on how to optimize treatment 12/28/18 - lisinopril is optimized, and although he is only on low dose metoprolol his pulse is low at 59 so no clear room to optimize, will consult Internal medicine to evaluate and treat ongoing HTN 12/29/18 - appreciate Internal Medicine input, appreciate modification on metoprolol XL down to 12.5mg with hold parameters for pulse <55bpm, and addition of amlodipine 5mg, initial BP's seem to be responding while his mid-day vitals are likely elevated due to anxiety about his physical sensation will monitor. aware to continue lisinopril 20mg. 12/30 - BP's within normal parameters today Post Discharge Appointments Primary Care Physician Name Of Family Doctor: Dr Carlee Tariq- [facility] Time of Appointment with PCP: follow up as needed. Provider Appointment Comment: [address], [place] [address] Primary Care Release of Information: Obtained, Reviewed and Signed Psychiatrist [facility] - [facility]iatrist's Date of Appointment with Psychiatrist: 01/27/19 Time of Appointment with Psychiatrist: 13:45 Psychiatric Appointment Comment: [address], [place] [address] Psychiatrist Release of Information: Obtained, Reviewed and Signed Therapist [facility] Kori Barron Therapist's Date of Therapist Appointment: 01/12/19 Time of Therapist Appointment: 12:00 Therapy Appointment Comment: [address], [place] [address] Therapist Release of Information: Obtained, Reviewed and Signed Specialist Name of Specialist: [facility] [place] - Dr. Ash MD Phone Number for Specialist: [phone] Specialty Appointment Comment: [address] [place] [address] Smoking Cessation Counseling Tobacco Cessation Medication Prescribed at Discharge: Not Applicable/Non-Smoker Contact Information Discharge Discharge [address]: [address] [place] [id number] Discharge Plan Discharge Items Patient Disposition: Home - Self-Care Reason For Visit: DEPRESSION Discharge Diagnosis: Recurrent depression Discharge Goals: Improve disease control, Improve function, Learn about illness, Specific goals and Therapeutic intervention Specific Goals: Resume medication and refer for outpatient care Activity: Per 'Additional Instructions' section Non-emergency contact: Primary Care Provider, Psychiatrist and Therapist Call non-emergency contact if: you have any medication questions and your symptoms worsen Follow-up/Referrals: Carlee Gu MD [Primary Care Provider] - Diet: Regular Addtl Provider Instructions: SPECIAL CARE INSTRUCTIONS: 1. Follow through with your scheduled aftercare appointments. If unable to keep an appointment, please call to reschedule. 2. Take your medication only as prescribed. Medication should not be changed or stopped without the approval of your doctor. In the event of worsening symptoms or concerns about side effects, contact your doctor immediately. 3. Utilize new healthy coping skills, anger management skills, and stress management skills learned during your hospitalization. Journal feelings and process them with a support person. Identify stressors or situations that may result in relapse, deterioration or inappropriate behaviors and develop a plan to deal with those issues. 4. If your coping skills are ineffective and you are in crisis, contact your outpatient providers for direction. If unable to reach your providers, please call the CAN HELP LINE AT or go to the closest Emergency Room. 5. Avoid alcohol and un-prescribed drugs. 6. You have been provided with the Mental Health Advance Directives Pamphlet for your review. AFTERCARE APPOINTMENTS: * Please call your insurance company prior to your scheduled appointment to confirm your aftercare providers are covered. Take your insurance information to your appointments. WHO TO CALL AND WHEN: Medical Emergencies: For questions or emergencies related to your hospital stay, please contact the Inpatient Behavioral Health Unit at [phone]. A policy intern is on-call 25/02 for the Behavioral Health Unit for emergencies At any time you feel your situation is an emergency, you may also call 911 immediately. Your Doctors Instructions noted above were prepared by provider Melania Lam MD. Prescriptions: New amlodipine [Norvasc] 5 mg Tablet 5 mg PO QAM Qty: 30 RF: 0 bupropion HCl 100 mg Tablet Sustained-Release 12 Hr 200 mg PO QAM Qty: 30 RF: 0 buspirone 15 mg tablet 15 mg PO BID Qty: 60 RF: 0 hydroxyzine pamoate 100 mg capsule 100 mg PO HS PRN (Reason: sleep) Qty: 30 RF: 0 Continued atorvastatin 40 mg tablet 40 mg PO DAILY RF: 0 lisinopril 20 mg tablet 20 mg PO DAILY RF: 0 clopidogrel 75 mg tablet 75 mg PO DAILY RF: 0 aspirin [Aspirin Low Dose] 81 mg Tablet,Delayed Release (Dr/Ec) 81 mg PO DAILY RF: 0 acetaminophen [Mapap (acetaminophen)] 325 mg Tablet 650 mg PO Q4H PRN (Reason: pain) Qty: 30 RF: 0 ranitidine HCl 150 mg Tablet 150 mg PO BID Qty: 60 RF: 0 Changed metoprolol succinate 25 mg Tablet Extended Release 24 Hr 12.5 mg PO DAILY Qty: 0 RF: 0 Stand-Alone Forms: [facility] Discharge Orders: Discharge Order (Routine); Ordered 01/01/19 Ordered By: Mleania Lam Admission Data Admit Date/Time: 12/26/18 17:55 Attending Provider: Carla Kline Admit Provider: Patricio Roberto Primary Care Provider: Carlee Gu Other Providers: Nishi Levine ; Dani Jackson Service: Psychiatry Other Interventions: Discharge Summary Assessment (RN) Last Done: 01/01/19 09:40 PSY Interdisciplinary Discharge Planning Last Done: 01/01/19 09:38 Pending Studies at Discharge: No
[2019-01-01 09:42] VITALS: PULSE 53
[2019-01-01] MEDS ORDERED: DESTROY THIS MEDICATION ONE (10:11)
== END 2019-01-01 13:45 | disposition home or self-care (01) | DRG 885 ==
LOC: 3S 17:55
DX: I25.10 Atherosclerotic heart disease of native coronary artery without angina pectoris; F33.2 Major depressive disorder, recurrent severe without psychotic features; Z95.5 Presence of coronary angioplasty implant and graft; Z79.82 Long term (current) use of aspirin